=== PATIENT | male | born 1985 | race African-American/Black ===

== ENCOUNTER 2020-10-26 22:12 | Emergency (ER) | payer MEDICARE, SELFPAY ==
[2020-10-26 22:15] VITALS: BP 137/87; PULSE 68; RESP 18; TEMP 36.2; O2SAT 100
[2020-10-27 00:24] VITALS: BP 130/90; PULSE 68; RESP 16; O2SAT 100
[2020-10-27 00:46] VITALS: BP 117/73; PULSE 60; RESP 16; O2SAT 99
[2020-10-27 01:01] VITALS: BP 129/88; PULSE 67; RESP 13; O2SAT 100
[2020-10-27 01:16] VITALS: BP 116/69; PULSE 67; RESP 13; O2SAT 98
--- NOTE | 2020-10-27 01:23 | ED.GENADULT ---
HPI - General Adult General Chief complaint: Unspecified Stated complaint: ST Time Seen by Provider: 10/27/20 00:40 History of Present Illness HPI narrative: Patient is a 35-year-old male who presents ER with sore throat. Reports he was diagnosed with Covid on the first of the month. He has had some sore throat since then. It went away for couple days but then returned 3 days ago. Occasion feels like he needs to cough or clear his throat. Nonproductive. No rhinorrhea or sinus congestion. Concerned he may have strep throat. Denies chest pain or chest pressure. No difficulty swallowing. Related Data Allergies Allergy/AdvReac Type Severity Reaction Status Date / Time No Known Allergies Allergy Unverified 01/19/18 18:45 Review of Systems Constitutional: Constitutional: Denies chills and Denies fever(s) ENT: Denies nose pain, Denies post nasal drip, Denies sinus pressure and Reports sore throat Respiratory: Respiratory: Reports cough, Denies excessive phlegm production and Denies dyspnea PMFSH Past Medical History Medical History (Updated 10/27/20 @ 01:25 by Edvin Bautista MD) Healthy adult male Surgical History Surgical History (Updated 10/27/20 @ 01:24 by Edvin Bautista MD) History of orthopedic surgery Right tib-fib and Achilles injury from trauma. Exam Narrative: GENERAL: Well-appearing, well-nourished, and in no acute distress. HEAD: Normocephalic, atraumatic. ENT: Mucous membranes moist. Well-appearing oropharynx without tonsillar hypertrophy/exudate. Uvula midline nonedematous. No buccal or palatal lesions. CHEST: Clear to auscultation. No respiratory distress. HEART: Regular rate and rhythm. Normal peripheral pulses. NEURO: Alert and oriented x3. PSYCH: Normal mood and affect. Course Course Emergency Course: Strep negative. Discharge home. Vital Signs Vital signs: Vital Signs Temperature 97.2 F L 10/26/20 22:15 Pulse Rate 68 10/26/20 22:15 Respiratory Rate 18 10/26/20 22:15 Blood Pressure 137/87 10/26/20 22:15 Pulse Oximetry 100 10/26/20 22:15 Temperature 97.2 F L 10/26/20 22:15 Pulse Rate 68 10/27/20 00:24 Respiratory Rate 16 10/27/20 00:24 Blood Pressure 130/90 10/27/20 00:24 Pulse Oximetry 100 10/27/20 00:24 Medical Decision Making Vital Signs Vital Signs: Vital Signs Temperature 97.2 F L 10/26/20 22:15 Pulse Rate 68 10/26/20 22:15 Respiratory Rate 18 10/26/20 22:15 Blood Pressure 137/87 10/26/20 22:15 Pulse Oximetry 100 10/26/20 22:15 Temperature 97.2 F L 10/26/20 22:15 Pulse Rate 68 10/27/20 00:24 Respiratory Rate 16 10/27/20 00:24 Blood Pressure 130/90 10/27/20 00:24 Pulse Oximetry 100 10/27/20 00:24 Lab Data Labs: Strep Screen Presumptive Negative *(Reference Range: Negative)* Discharge Plan Discharge Clinical Impression: Sore throat Patient Disposition: Home, Self-Care Condition: Stable Additional Instructions: You have a sore throat, the reason for which is unclear. It may be related to some mild allergy symptoms with postnasal drip causing irritation. Continue take antihistamines at home. Return the ER if you cannot breathe, you cannot swallow, you develop fever over 100.4 ?F, you have additional concerns. Follow-up/Referrals: Soy Coronel MD [Primary Care Provider] -
[2020-10-27 01:31] VITALS: BP 112/75; PULSE 60; RESP 14; O2SAT 99
[2020-10-27 01:45] VITALS: BP 112/75; PULSE 68; RESP 12; O2SAT 100
== END 2020-10-27 01:49 | disposition home or self-care (01) ==
LOC: ANHED 10-27 01:27
PROVIDERS: Emergency Provider Emergency Medicine; PCP Emergency Medicine
DX: J06.9 Acute upper respiratory infection, unspecified (principal)
CPT/HCPCS: 87081; 87880; 99283

== ENCOUNTER 2023-01-03 17:51 | Emergency (ER) | payer MEDICARE, SELFPAY ==
--- NOTE | ~2023-01-03 | XR_ITS ---
EXAM: XR elbow LT min 3V DATE: 01/03/2023 18:12 HISTORY: sports injury; Lt elbow pain after lifting wts 1 mo ago . COMPARISON: None available. FINDINGS: Normal mineralization. No fracture or dislocation. No lytic or blastic lesion. Mild degene rative change at the elbow joint. No erosion or periosteal change. Soft tissues within normal limits. IMPRESSION: No acute osseous finding in the left elbow. Reviewed, dictated and finalized at location K.
[2023-01-03 18:15] VITALS: BP 140/76; PULSE 69; RESP 20; TEMP 36.6; O2SAT 100
--- NOTE | 2023-01-03 18:37 | ED.UPPEXIN ---
HPI - Extremity Injury (Upper) General Chief Complaint: Extremity Injury, Upper Stated Complaint: elbow injury Time Seen by Provider: 01/03/23 18:25 History of Present Illness HPI narrative: Patient hurt his left elbow while working out 2 months ago, he continue to work out through it but seemed to make it worse. He occasionally takes an Advil, overall the elbow pain has been improving but he is concerned that he may have injured it. Related Data Allergies Allergy/AdvReac Type Severity Reaction Status Date / Time No Known Allergies Allergy Verified 01/03/23 17:53 Review of Systems Review of Systems: M/S: Left elbow pain SKIN: No rash. NEURO: [No focal numbness or weakness] [facility] Past Medical History Medical History (Updated 01/03/23 @ 18:38 by Ada Garcia MD) Healthy adult male Surgical History Surgical History (Updated 10/27/20 @ 01:24 by Edvin Bautista MD) History of orthopedic surgery Right tib-fib and Achilles injury from trauma. Exam Narrative: EXAMINATION OF ORGAN SYSTEMS/BODY AREAS: Constitutional: Vital signs per nursing GENERAL:[No acute distress, non-toxic appearing.] HEAD: Normal with no signs of head trauma. EYES: EOMI, conjunctiva normal ENT: Hearing grossly intact LUNGS: Nonlabored breathing. HEART: [Regular rate and rhythm] ABD: [Soft], [nontender to palpation] EXT: Normal range of motion, no deformity; normal radial pulses SKIN: [No rashes or lesions.] NEURO: [Alert and oriented x 3. No gross focal sensory or strength deficits.] PSYCH: Normal affect Course Vital Signs Vital signs: Vital Signs Temperature 97.8 F 01/03/23 18:15 Pulse Rate 69 01/03/23 18:15 Respiratory Rate 20 01/03/23 18:15 Blood Pressure 140/76 01/03/23 18:15 Pulse Oximetry 100 01/03/23 18:15 Temperature 97.8 F 01/03/23 18:15 Pulse Rate 69 01/03/23 18:15 Respiratory Rate 20 01/03/23 18:15 Blood Pressure 140/76 01/03/23 18:15 Pulse Oximetry 100 01/03/23 18:15 MDM - Extremity Injury (Upper) MDM Narrative Medical decision making narrative: Patient presenting with left elbow pain after heavy working out, ongoing for 2 months, usually asymptomatic unless certain movements, on evaluation no obvious deformity, neurovascularly intact, no severe tenderness, full range of motion. X-ray is negative, given follow-up to ortho for possible MRI for further evaluation. D/w pt who is agreeable to plan. Discharge Plan Discharge Clinical Impression: Left elbow pain Patient Disposition: Home, Self-Care Condition: Stable Instructions: Antibiotic Form, Elbow Sprain (ED) Additional Instructions: Please follow up with ortho; you can always return for any further issues. Follow-up/Referrals: Aram Castellanos MD [Physician] - 2 Days Soy Coronel MD [Physician] -
== END 2023-01-03 18:59 | disposition home or self-care (01) ==
LOC: ANHED 18:48
PROVIDERS: Emergency Provider Emergency Medicine; PCP Nurse Practitioner Family
DX: S59.902A Unspecified injury of left elbow, initial encounter (principal); X50.9XXA Other and unspecified overexertion or strenuous movements or postures, initial encounter
CPT/HCPCS: 73080; 99283

== ENCOUNTER 2024-01-02 16:40 | Emergency (ER) | payer MEDICARE, SELFPAY ==
--- NOTE | ~2024-01-02 | XR_ITS ---
EXAMINATION: XR ribs LT 2V w CXR 2V DATE: 01/02/2024 18:33 INDICATION: Left rib pain and pleuritic chest pain TECHNIQUE: PA and lateral views of the chest and 3 views of the left ribs were obtained. COMPARISON: None FINDINGS: No rib fractures identified. No pneumothorax. No focal infiltrates, pleural effusion or pulmonary letty ma. Cardiomediastinal silhouette is normal. IMPRESSION: 1. No rib fracture or acute cardiopulmonary disease. Reviewed, dictated and finalized at location A.
[2024-01-02 17:09] VITALS: BP 140/88; PULSE 73; RESP 17; TEMP 36.5; O2SAT 99
--- NOTE | 2024-01-02 18:22 | ECG_ITS ---
Test Date: 2024-01-02 18:38:54 Measurements Intervals [place] Rate: 67 P: 58 MA: 204 QRS: 72 QRSD: 109 T: 62 QT: 377 QTc: 400 Interpretive Statements SINUS RHYTHM No previous ECG available for comparison Electronically Signed On 01-03-2024 09:38:42 CDT by Renny Hanks M.D.
[2024-01-02 18:50] LABS: Basophils Absolute Auto 0.1 K/mm3 (0.0-0.1); Basophils Percent Auto 0.8 % (0.2-1.2); Eosinophils Absolute Auto 0.2 K/mm3 (0-0.3); Eosinophils Percent Auto 2.9 % (0-4.4); Hematocrit 41.9 % (42.0-52.0); Hemoglobin 15.1 g/dL (14.0-18.0); Immature Granulocyte Absolute 0.03 K/mm3 (0.00-0.031); Immature Granulocyte Percent A 0.4 % (0-0.5); Lymphocytes Absolute Auto 2.14 K/mm3 (0.9-3.2); Lymphocytes Percent Auto 27.8 % (18.3-44.2); Mean Corpuscular Hemoglobin 31.9 pg (26-34); Mean Corpuscular Volume 88.6 fl (80-100); Mean Platelet Volume 10.7 fl (7.4-10.4); Monocytes Absolute Auto 0.7 K/mm3 (0.1-0.6); Monocytes Percent Auto 9.2 % (2.6-8.5); Neutrophils Absolute Auto 4.5 K/mm3 (1.3-6.7); Neutrophils Percent Auto 58.9 % (45.5-73.1); Platelet Count Result 236 k/mm3 (150-375); Red Blood Count 4.73 M/mm3 (4.6-6.20); Red Cell Distribution Width 12.3 % (11.5-14.5); White Blood Count 7.7 K/mm3 (4.5-10.0)
[2024-01-02 19:00] LABS: Alanine Aminotransferase 17 U/L (6-50); Albumin Level 4.4 g/dL (3.5-5.1); Alkaline Phosphatase 38 U/L (38-126); Anion Gap 7 mmol/L (4-12); Aspartate Amino Transferase 21 U/L (17-59); Bilirubin,Total 0.3 mg/dL (0.2-1.3); Blood Urea Nitrogen 21 mg/dL (9-20); Calcium 9.4 mg/dL (8.4-10.2); Carbon Dioxide 27 mmol/L (22-30); Chloride 104 mmol/L (98-107); Estimated CRCL calculation 101 ml/min; Estimated Glomerular Filt Rate > 60; Glucose 83 mg/dL (65-110); Lipase 107 U/L (23-300); Potassium 3.9 mmol/L (3.4-5.0); Sodium 138 mmol/L (137-145)
[2024-01-02 19:01] LABS: Prothrombin Time 13.5 Seconds (11.1-14.7)
[2024-01-02 19:02] LABS: Partial Thromboplastin Time 26.5 Seconds (22.3-36.8)
[2024-01-02 19:13] LABS: Troponin I < 0.012 ng/mL (0.000-0.034)
[2024-01-02 19:29] VITALS: BP 138/86; PULSE 79; RESP 16; TEMP 36.6; O2SAT 99
[2024-01-02] MEDS: KETOROLAC 30 MG/ML VIAL (*BKC) IM (19:50)
[2024-01-02] MEDS: LIDOCAINE 5% PATCH 1 PATCH TRANSDERM (19:51)
--- NOTE | 2024-01-02 19:57 | ED_ITS ---
HPI - Back Pain/Injury General Chief Complaint: Back Pain/Injury Stated Complaint: back pain Time Seen by Provider: 01/02/24 18:09 History of Present Illness HPI Narrative: 38-year-old male presents emergency department for left-sided rib pain for approximately 1 week. Patient states he has chronic right neck and shoulder pain which she has been seeing a chiropractor for. States he then began developing left rib pain and told his chiropractor and has been having several adjustments to his left ribs over the past week. States the chiropractor will push on his ribs and told they feel a pop. He went to chiropractor again today and states the pain was getting worse and they again attempted to adjust his ribs. He states the pain was significantly worse he came to the ED for further evaluation. He states the pain is worse when he takes a deep breath and when he moves. He denies cough or congestion, fever. 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 Social History Social History Smoking status: Never smoker Substance use type: does not use Living arrangements: with family Gender identity (if verbalized by the patient): Male Exam Narrative: GENERAL: Well-appearing, well-nourished, and in no acute distress. HEAD: Normocephalic, atraumatic. EYES:EOMI. ENT: Nares clear, no rhinorrhea or epistaxis. Mucous membranes moist. NECK: Supple. CHEST: Clear to auscultation. No respiratory distress. Tenderness to the left posterior lateral chest wall with no overlying ecchymosis or skin changes, no crepitus, step-offs or deformities HEART: Regular rate and rhythm. No murmur heard. Normal peripheral pulses. ABDOMEN: Soft, nontender, nondistended, normal active bowel sounds. No CVA tenderness EXTREMITIES: Normal range of motion. No edema. SKIN: Warm, dry, no rash. NEURO: No focal deficits. Alert and oriented x3 Course Vital Signs Vital signs: Vital Signs Temperature 97.7 F 01/02/24 17:09 Pulse Rate 73 01/02/24 17:09 Respiratory Rate 17 01/02/24 17:09 Blood Pressure 140/88 01/02/24 17:09 Pulse Oximetry 99 01/02/24 17:09 Oxygen Delivery Room Air 01/02/24 17:09 Temperature 97.9 F 01/02/24 19:29 Pulse Rate 79 01/02/24 19:29 Respiratory Rate 16 01/02/24 19:29 Blood Pressure 138/86 01/02/24 19:29 Pulse Oximetry 99 01/02/24 19:29 Oxygen Delivery Room Air 01/02/24 17:09 MDM - Back Pain/Injury MDM Narrative Medical decision making narrative: 38-year-old male presents emergency department for left posterior lateral rib pain for approximately 1 week, worsening after adjustments to the chiropractor. Vitals are stable. Patient is well-appearing and nontoxic, resting comfortably in the exam chair. On evaluation he has minimal tenderness to the left posterior lateral chest wall. Admits pain is worse with inspiration and m ovement. Lung sounds are clear. Left rib x-ray and PA/lateral chest x-ray are unremarkable. EKG shows sinus rhythm with rate of 67, normal ID interval, normal QRS duration, normal QTC, no ischemic changes. Troponin is undetectable. Lipase normal. Workup discussed with the patient. Discussed symptom allergies consistent with MSK etiology versus pleurisy, more likely MSK. He was given IM Toradol and lidocaine patch in the ED, these were sent to the pharmacy along with Flexeril. Advised him to follow closely with his PCP and to discontinue going to the chiropractor. He was also sent home with an incentive spirometer. Strict ED return precautions discussed. He is agreeable with the plan verbalized understanding. Discharged in stable condition. Lab Data 01/02/24 18:42 01/02/24 18:42 Labs: Lab Results 01/02/24 Range/Units 18:42 WBC 7.7 (4.5-10.0) K/mm3 RBC 4.73 (4.6-6.20) M/mm3 Hgb 15.1 (14.0-18.0) g/dL Hct 41.9 L (42.0-52.0) % MCV 88.6 (80-100) fl MCH 31.9 (26-34) pg MCHC 36.0 (32-36) g/dl RDW 12.3 (11.5-14.5) % Plt Count 236 (150-375) k/mm3 MPV 10.7 H (7.4-10.4) fl Immature Gran % (Auto) 0.4 (0-0.5) % Neut % (Auto) 58.9 (45.5-73.1) % Lymph % (Auto) 27.8 (18.3-44.2) % Wilkin % (Auto) 9.2 H (2.6-8.5) % Eos % (Auto) 2.9 (0-4.4) % Baso % (Auto) 0.8 (0.2-1.2) % Lymph # (Auto) 2.14 (0.9-3.2) K/mm3 Wilkin # (Auto) 0.7 H (0.1-0.6) K/mm3 Eos # (Auto) 0.2 (0-0.3) K/mm3 Baso # (Auto) 0.1 (0.0-0.1) K/mm3 Abs Immat Gran (auto) 0.03 (0.00-0.031) K/mm3 Absolute Neuts (auto) 4.5 (1.3-6.7) K/mm3 Absolute Nucleated RBC 0.000 (0.0-0.012) K/mm3 Nucleated RBC % 0.0 (0.0-0.2) % PT 13.5 (11.1-14.7) Seconds INR 1.0 APTT 26.5 (22.3-36.8) Seconds Sodium 138 (137-145) mmol/L Potassium 3.9 (3.4-5.0) mmol/L Chloride 104 (98-107) mmol/L Carbon Dioxide 27 (22-30) mmol/L Anion Gap 7 (4-12) mmol/L BUN 21 H (9-20) mg/dL Creatinine 1.00 (0.7-1.3) mg/dL Estim Creat Clear Calc 101 ml/min Estimated GFR > 60 (59 - ) Glucose 83 (65-110) mg/dL Calcium 9.4 (8.4-10.2) mg/dL Total Bilirubin 0.3 (0.2-1.3) mg/dL AST 21 (17-59) U/L ALT 17 (6-50) U/L Alkaline Phosphatase 38 (38-126) U/L Troponin I < 0.012 (0.000-0.034) ng/mL Total Protein 8.0 (6.3-8.2) g/dL Albumin 4.4 (3.5-5.1) g/dL Lipase 107 (23-300) U/L Discharge Plan Discharge Clinical Impression: Rib pain on left side Patient Disposition: Home, Self-Care Condition: Stable Instructions: Antibiotic Form, Rib Contusion (ED) Additional Instructions: Your evaluated in the emergency department for left rib pain. Your x-ray showed no broken ribs, no pneumonia or other findings. He the remainder of your workup looks normal. Your exam is consistent with a musculoskeletal cause of your pain as discussed. I sent ibuprofen, muscle relaxers and lidocaine patches to the pharmacy, please take these as directed. Please use the incentive spirometer several times a day to help prevent pneumonia. Follow-up closely with her primary care provider. Return to the emergency department if you develop cough, fever, shortness of breath, worsening pain or other concerning symptoms. Prescriptions: New ibuprofen 600 mg tablet 600 mg PO Q6H PRN (Reason: pain) Qty: 14 0RF cyclobenzaprine 10 mg tablet 10 mg PO TID PRN (Reason: muscle spasm) Qty: 14 0RF lidocaine 5 % adhesive patch,medicated 1 patch topical DAILY Qty: 15 0RF Rx Instructions: leave on most painful area for up to 12 hrs. do not use more than 1 patch in a 24-hour period. Follow-up/Referrals: Soy Coronel MD [Primary Care Provider] -
== END 2024-01-02 20:22 | disposition home or self-care (01) ==
PROVIDERS: Emergency Provider Physician Assistant; PCP Emergency Medicine
DX: R07.81 Pleurodynia (principal)
CPT/HCPCS: 36415; 71046; 71100; 80053; 83690; 84484; 85025; 85610; 85730; 93005; 96372; 99284; A9270; J1885

== ENCOUNTER 2024-01-13 02:20 | Observation (INO) | payer MEDICARE, SELFPAY ==
[2024-01-13] VITALS (62 sets, daily range): BP systolic 104–139; BP diastolic 70–99; PULSE 55–86; RESP 10–23; TEMP 36.4–37.1; O2SAT 93–100; BMI 25.4
--- NOTE | ~2024-01-13 | CT_ITS ---
EXAMINATION: CTA chest PE protocol, CTA abdomen pelvis DATE: 01/13/2024 13:51 INDICATION: Chest pain. TECHNIQUE: 1. Computed tomography (CT) pulmonary angiogram of the chest was performed with 100 mL Omnipaque-350 intravenous contrast. Additional 3D reconstructions utilizing coronal maximum intensity projection (M IP) were performed. Automated exposure control and iterative reconstruction technique were employed. 2. CT angiogram of the abdomen and pelvis was performed utilizing the same 100 mL Omnipaque-350 intra venous contrast bolus. Additional 3D reconstructions utilizing coronal maximum intensity projection ( MIP) were performed. Automated exposure control and iterative reconstruction technique were employed. The combined dose-length product for both of these studies was 824.90 mGy-cm. COMPARISON: None FINDINGS: Chest: No pulmonary embolism. Mild discoid atelectasis at the basilar bilateral lower lobes. No pneumonia, p ulmonary edema, pleural effusion or pneumothorax. Heart size is normal. No pericardial effusion. Thor acic aorta is normal in caliber with no dissection. No pathologically enlarged thoracic lymphadenopat hy. Mild thoracic spondylosis. Abdomen and pelvis: Likely vicarious excreted contrast layering in the nondependent gallbladder over lower attenuation li raulito dependent sludge. Liver, spleen, pancreas, bilateral adrenal glands and kidneys are normal. Ther e is significant amount of excreted contrast the bilateral renal collecting systems, ureters and blad vandana suggesting an earlier contrast enhanced study, most likely related angiography with sheath extend ing into the right common femoral artery and stranding including some extravasated high attenuation c ontrast in the soft tissues both distal to the inguinal ligament as well as some extraperitoneal cont rast proximal to the inguinal ligament in the anterior right hemipelvis. The density suggests this is acute active extravasation. No bowel obstruction. Abdominal aorta is normal in caliber with no disse ction. Bones are unremarkable. IMPRESSION: 1. No pulmonary embolism or other acute cardiopulmonary disease. 2. Small amount of likely active contrast extravasation at the right groin with sheath within the rig ht common femoral vein and small hematoma along the right common and superficial femoral artery and s mall amount of contrast the soft tissues at both proximal and distal to the level of the inguinal lig ament. Reviewed, dictated and finalized at location A. PRESS OPERATOR HELPER IMPRESSION: 1. No pulmonary embolism or other acute cardiopulmonary disease. 2. Small amount of likely active contrast extravasation at the right groin with sheath within the right common femoral vein and small hematoma along the right common and superficial femoral artery and small amount of contrast the soft ti ssues at both proximal and distal to the level of the inguinal ligament.
--- NOTE | ~2024-01-13 | XR_ITS ---
EXAMINATION: XR chest 1V portable DATE: 01/13/2024 02:53 INDICATION: Chest pain TECHNIQUE: frontal view of the chest was obtained. COMPARISON: Chest radiograph dated 02/02/2024 FINDINGS: Mild reticular opacities in the left lower lung zone. Remainder of the lungs are clear. Increased diana ency and architectural distortion at the upper lungs The cardiomediastinal silhouette is normal. Visu alized bones and soft tissues are unremarkable. IMPRESSION: 1. Mild reticular opacities in the left lower lung zone which could represent bronchitis/pneumonia, a telectasis or mild pulmonary edema. Reviewed, dictated and finalized at location A. ESS MENDER IMPRESSION: 1. Mild reticular opacities in the left lower lung zone which could represent b ronchitis/pneumonia, atelectasis or mild pulmonary edema.
--- NOTE | 2024-01-13 02:24 | ECG_ITS ---
Test Date: 2024-01-13 02:31:55 Measurements Intervals [place] Rate: 58 P: 67 NM: 195 QRS: 71 QRSD: 102 T: 66 QT: 403 QTc: 398 Interpretive Statements SINUS BRADYCARDIA BORDERLINE ECG Compared to ECG 01/02/2024 18:38:54 HEART RATE HAS DECREASED Electronically Signed On 01-13-2024 06:13:50 TRANSPORTATION PROJECT MANAGER by Mat Araujo D.O.
[2024-01-13 02:35] LABS: Basophils Absolute Auto 0.1 K/mm3 (0.0-0.1); Eosinophils Absolute Auto 0.3 K/mm3 (0-0.3); Eosinophils Percent Auto 4.2 % (0-4.4); Hematocrit 42.7 % (42.0-52.0); Hemoglobin 15.3 g/dL (14.0-18.0); Immature Granulocyte Absolute 0.03 K/mm3 (0.00-0.031); Immature Granulocyte Percent A 0.4 % (0-0.5); Lymphocytes Percent Auto 43.1 % (18.3-44.2); Mean Corpuscular HGB Conc 35.8 g/dl (32-36); Mean Corpuscular Hemoglobin 31.7 pg (26-34); Mean Corpuscular Volume 88.6 fl (80-100); Mean Platelet Volume 10.5 fl (7.4-10.4); Monocytes Absolute Auto 0.9 K/mm3 (0.1-0.6); Monocytes Percent Auto 10.8 % (2.6-8.5); Neutrophils Absolute Auto 3.2 K/mm3 (1.3-6.7); Neutrophils Percent Auto 40.5 % (45.5-73.1); Platelet Count Result 231 k/mm3 (150-375); Red Blood Count 4.82 M/mm3 (4.6-6.20); Red Cell Distribution Width 12.5 % (11.5-14.5); White Blood Count 7.9 K/mm3 (4.5-10.0)
[2024-01-13 02:45] LABS: Alanine Aminotransferase 26 U/L (6-50); Albumin Level 4.5 g/dL (3.5-5.1); Alkaline Phosphatase 40 U/L (38-126); Anion Gap 10 mmol/L (4-12); Aspartate Amino Transferase 35 U/L (17-59); Bilirubin,Total 0.4 mg/dL (0.2-1.3); Blood Urea Nitrogen 19 mg/dL (9-20); Calcium 9.2 mg/dL (8.4-10.2); Carbon Dioxide 30 mmol/L (22-30); Chloride 100 mmol/L (98-107); Estimated CRCL calculation 111 ml/min; Estimated Glomerular Filt Rate > 60; Glucose 99 mg/dL (65-110); Lipase 118 U/L (23-300); Potassium 3.5 mmol/L (3.4-5.0); Prothrombin Time 13.2 Seconds (11.1-14.7); Sodium 140 mmol/L (137-145)
[2024-01-13 02:46] LABS: Partial Thromboplastin Time 26.6 Seconds (22.3-36.8)
--- NOTE | 2024-01-13 03:01 | ED_ITS ---
HPI - General Adult General Chief complaint: Chest Pain Stated complaint: chest pain Time Seen by Provider: 01/13/24 02:29 History of Present Illness HPI narrative: Patient is a 38-year-old gentleman who presents emergency department with chief complaint of chest discomfort. Patient reports that he had a uncomfortable feeling it has been going on for the last 24 hours in his chest patient states this evening he ate some should be jaundiced and reports that pain discomfort got worse. The patient states he did take some Pepto out 45 minutes prior to arrival without the patient reports he has no prior history of cardiac disease Related Data Allergies Allergy/AdvReac Type Severity Reaction Status Date / Time No Known Allergies Allergy Verified 01/13/24 02:28 Review of Systems Review of Systems: A 10 system review of systems was completed on the patient and is negative except for what is stated in the HPI. Nursing and ancillary documentation was reviewed. 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 Social History Social History Smoking status: Never smoker Substance use type: does not use Living arrangements: with family Gender identity (if verbalized by the patient): Male Exam Narrative: GENERAL: Well-appearing, well-nourished, and in no acute distress. HEAD: Normocephalic, atraumatic. EYES: PERRLA and EOMI. ENT: Nares clear, no rhinorrhea or epistaxis. Mucous membranes moist. NECK: Supple. CHEST: Clear to auscultation. No respiratory distress. HEART: Regular rate and rhythm. No murmur heard. Normal peripheral pulses. ABDOMEN: Soft, nontender, nondistended, normal active bowel sounds. EXTREMITIES: Normal range of motion. No edema. SKIN: Warm, dry, no rash. NEURO: No focal deficits. Alert and oriented x3. PSYCH: Normal mood and affect. Course Vital Signs Vital signs: Vital Signs Temperature 36.4 C 01/13/24 02:24 Pulse Rate 86 01/13/24 02:24 Respiratory Rate 14 01/13/24 02:24 Blood Pressure 132/95 H 01/13/24 02:24 Pulse Oximetry 100 01/13/24 02:24 Oxygen Delivery Room Air 01/13/24 02:24 Temperature 36.4 C 01/13/24 02:24 Pulse Rate 69 01/13/24 02:28 Respiratory Rate 14 01/13/24 02:24 Blood Pressure 132/95 H 01/13/24 02:24 Pulse Oximetry 100 01/13/24 02:31 Oxygen Delivery Room Air 01/13/24 02:31 Medical Decision Making MDM Narrative Medical decision making narrative: Differential diagnosis includes ACS, NSTEMI, gastroesophageal reflux disease, gastritis, pancreatitis EKG showed no acute ST elevations Laboratory studies showed a normal CBC CMP showed no acute abnormalities lipase was normal at 118 Initial troponin was 1.730 Patient given aspirin emergency department The patient will be started on heparin drip Case will be discussed with hospitalist for admission Vital Signs Vital Signs: Vital Signs Temperature 36.4 C 01/13/24 02:24 Pulse Rate 86 01/13/24 02:24 Respiratory Rate 14 01/13/24 02:24 Blood Pressure 132/95 H 01/13/24 02:24 Pulse Oximetry 100 01/13/24 02:24 Oxygen Delivery Room Air 01/13/24 02:24 Temperature 36.4 C 01/13/24 02:24 Pulse Rate 69 01/13/24 02:28 Respiratory Rate 14 01/13/24 02:24 Blood Pressure 132/95 H 01/13/24 02:24 Pulse Oximetry 100 01/13/24 02:31 Oxygen Delivery Room Air 01/13/24 02:31 Lab Data 01/13/24 02:29 01/13/24 02:29 Labs: Lab Results 01/13/24 Range/Units 02:29 WBC 7.9 (4.5-10.0) K/mm3 RBC 4.82 (4.6-6.20) M/mm3 Hgb 15.3 (14.0-18.0) g/dL Hct 42.7 (42.0-52.0) % MCV 88.6 (80-100) fl MCH 31.7 (26-34) pg MCHC 35.8 (32-36) g/dl RDW 12.5 (11.5-14.5) % Plt Count 231 (150-375) k/mm3 MPV 10.5 H (7.4-10.4) fl Immature Gran % (Auto) 0.4 (0-0.5) % Neut % (Auto) 40.5 L (45.5-73.1) % Lymph % (Auto) 43.1 (18.3-44.2) % [place] % (Auto) 10.8 H (2.6-8.5) % Eos % (Auto) 4.2 (0-4.4) % Baso % (Auto) 1.0 (0.2-1.2) % Lymph # (Auto) 3.40 H (0.9-3.2) K/mm3 [place] # (Auto) 0.9 H (0.1-0.6) K/mm3 Eos # (Auto) 0.3 (0-0.3) K/mm3 Baso # (Auto) 0.1 (0.0-0.1) K/mm3 Abs Immat Gran (auto) 0.03 (0.00-0.031) K/mm3 Absolute Neuts (auto) 3.2 (1.3-6.7) K/mm3 Absolute Nucleated RBC 0.000 (0.0-0.012) K/mm3 Nucleated RBC % 0.0 (0.0-0.2) % PT 13.2 (11.1-14.7) Seconds INR 1.0 APTT 26.6 (22.3-36.8) Seconds Sodium 140 (137-145) mmol/L Potassium 3.5 (3.4-5.0) mmol/L Chloride 100 (98-107) mmol/L Carbon Dioxide 30 (22-30) mmol/L Anion Gap 10 (4-12) mmol/L BUN 19 (9-20) mg/dL Creatinine 0.90 (0.7-1.3) mg/dL Estim Creat Clear Calc 111 ml/min Estimated GFR > 60 (59 - ) Glucose 99 (65-110) mg/dL Calcium 9.2 (8.4-10.2) mg/dL Total Bilirubin 0.4 (0.2-1.3) mg/dL AST 35 (17-59) U/L ALT 26 (6-50) U/L Alkaline Phosphatase 40 (38-126) U/L Troponin I 1.730 H* (0.000-0.034) ng/mL Total Protein 8.0 (6.3-8.2) g/dL Albumin 4.5 (3.5-5.1) g/dL Lipase 118 (23-300) U/L Critical Care Time Critical Care Time Critical Care Time: Yes Total Critical Care Time: 30 Discharge Plan Discharge Clinical Impression: Non-ST elevation [place] (NSTEMI) Patient Disposition: Still a Patient Condition: Stable Prescriptions: No Action ibuprofen 600 mg tablet 600 mg PO Q6H PRN (Reason: pain) Qty: 14 0RF cyclobenzaprine 10 mg tablet 10 mg PO TID PRN (Reason: muscle spasm) Qty: 14 0RF lidocaine 5 % adhesive patch,medicated 1 patch topical DAILY Qty: 15 0RF Rx Instructions: leave on most painful area for up to 12 hrs. do not use more than 1 patch in a 24-hour period. Follow-up/Referrals: Soy Coronel MD [Primary Care Provider] - Time of Disposition: 03:03
[2024-01-13] MEDS: ONDANSETRON INJ 4 MG/2 ML VIAL IV PUSH (03:12)
[2024-01-13] MEDS: ASPIRIN 81 MG CHEWABLE TABLET 324 MG PO (03:14)
[2024-01-13] MEDS: NITROGLYCERIN SL 0.4 MG TABLET SUBLINGUAL (03:14)
[2024-01-13] MEDS: PANTOPRAZOLE SODIUM IV 40 MG VIAL IV PUSH (03:15)
[2024-01-13] MEDS: MORPHINE SULFATE (*CRX) 4 MG/ML INJ IV PUSH (03:15)
--- NOTE | 2024-01-13 03:20 | P.HP_ITS ---
H&P: HPI History of Present Illness Date/Time: 01/13/24 06:00 Chief Complaint: Chest pain. Narrative: This is a 38-year-old male without significant medical history who presented to the emergency department via private vehicle for evaluation of chest pain. The patient provides the following history. On Sunday he ?just felt weird all day.? When asked for further clarification he reports that he was feeling anxious for no reason. Yesterday he was feeling back to normal so couple of hours after he returned home from eating dinner last evening he once again started to feel similar symptoms he was experiencing the day before. He retired to bed at 23:00 and not long thereafter he developed aching pain in the mid chest which he describes as pressure or heaviness. It seemed to radiate into the arms, more so into the forearms and wrist. Associated symptoms include nausea and 1 episode of nonbilious and non bloody emesis. He took Pepto-Bismol which did not help. The pain intensified to 8-9/10 any came in for evaluation. He has never had similar symptoms. Up until the last couple of months he was working out at the gym frequently but stopped going when he developed the musculoskeletal issues mentioned above. He has not had any exertional chest pain and denies pleuritic pain, palpitations, shortness of breath, lower extremity edema, and calf pain. He also denies syncope and near-syncope. 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 He endorses having quite a bit of stress recently as he is saving up for a down payment on home. At this time he has minimal if any discomfort. No personal or family history of coronary artery disease. Of note, a couple of months ago he began experiencing aching in his mid upper back and at times into the neck and shoulder and he saw 2 different chiropractors without much benefit. His symptoms actually improved after he stopped going. In the ED: Vital signs were stable on arrival. CMP and CBC were pretty unremarkable. Initial troponin was 1.730. EKG showed sinus bradycardia. He was given aspirin 324 mg and was started on heparin drip and is being admitted to the IMU in this setting for close monitoring and Cardiology consultation. Review of Systems Review of Systems: 12 systems were reviewed and are negativ e except for as per HPI. [facility] Past Medical History Medical History (Updated 01/13/24 @ 06:18 by Angelica Castillo PA-C) Healthy adult male Surgical History Surgical History History of orthopedic surgery Right tib-fib and Achilles injury from trauma. Family History Family History (Updated 01/13/24 @ 06:18 by Angelica Castillo PA-C) Mother Cerebrovascular accident Hypertension Sibling Hypertension Social History Social History (Updated 01/13/24 @ 06:19 by Angelica Castillo PA-C) Social History: Surrogate medical decision maker: Cheryl Guzman, mother. Code status: Full code. Smoking status: Never smoker Substance use type: does not use Additional living arrangements comments: Lives in [place]. Additional occupation/education comments: Works from home in the [employer] industry. Meds Home Medications and Allergies Home Medications Medication Instructions Recorded Confirmed Type cyclobenzaprine 10 mg tablet 10 mg PO TID PRN muscle spasm #14 01/02/24 Rx tabs ibuprofen 600 mg tablet 600 mg PO Q6H PRN pain #14 tabs 01/02/24 Rx lidocaine 5 % topical patch 1 patch topical DAILY #15 ea 01/02/24 Rx Allergies Allergy/AdvReac Type Severity Reaction Status Date / Time No Known Allergies Allergy Verified 01/13/24 02:28 Vital Signs Vital Signs - 24 hr 01/13/24 02:24 01/13/24 02:28 01/13/24 02:31 Temperature 97.6 F Pulse Rate 86 69 Respiratory Rate 14 Blood Pressure 132/95 H Pulse Oximetry 100 100 Oxygen Delivery Room Air Room Air Exam Narrative: General: Well-developed, nontoxic-appearing male sitting up in bed in no acute distress. Weight: 86.2 kg. BMI: 24.4. HEENT: Normocephalic, atraumatic. PERRL, EOMI. Sclera anicteric. Oral mucosa moist. Oropharynx clear. Neck: Supple. No carotid bruits or JVD. Respiratory: Lungs are clear to auscultation bilaterally. Cardiovascular: Regular rate and rhythm with S1-S2. Chest: No tenderness to palpation over the chest wall. Gastrointestinal: Abdomen is soft, nontender, and nondistended with positive bowel sounds. Skin: Warm and dry. No rash or lesions on limited exam. Extremities: No cyanosis, clubbing, or edema. Radial and pedal pulses intact. No palpable knots or cords. Negative Elio sign bilaterally. Neurological: Alert. Cranial nerves 2-12 are grossly intact. No gross focal deficits to casual conversation. Psychiatric: Pleasant and cooperative with normal mood and affect. Judgment and insight intact. H&P: Results Labs Labs: Short CBC 01/13/24 Range/Units 02:29 WBC 7.9 (4.5-10.0) K/mm3 Hgb 15.3 (14.0-18.0) g/dL Hct 42.7 (42.0-52.0) % Plt Count 231 (150-375) k/mm3 BMP 01/13/24 02:29 Sodium 140 Potassium 3.5 Chloride 100 Carbon Dioxide 30 BUN 19 Creatinine 0.90 Glucose 99 Calcium 9.2 Cardiac Enzymes 01/13/24 Range/Units 02:29 Troponin I 1.730 H* (0.000-0.034) ng/mL Liver Function 01/13/24 Range/Units 02:29 Total Bilirubin 0.4 (0.2-1.3) mg/dL AST 35 (17-59) U/L ALT 26 (6-50) U/L Alkaline Phosphatase 40 (38-126) U/L Albumin 4.5 (3.5-5.1) g/dL Assessment and Plan Assessment and plan (1) Non-ST elevation myocardial infarction (NSTEMI): Code(s): I21.4 - Non-ST elevation (NSTEMI) myocardial infarction Status: Acute Plan The patient presented to the emergency department for evaluation of mid chest pain as detailed in HPI. Labs, imaging, EKG, and all reports were personally reviewed. Initial troponin was 1.730 and is trending upwards. He received aspirin 324 mg and is currently on heparin drip. At this time he is without significant chest discomfort. He will be NPO for possible cardiac catheterization later today. Vital signs were reviewed and they are stable. Check fasting lipids. Findings and treatment plan were discussed with the patient. Questions were solicited and answered to satisfaction. The patient's medical management will be taken over by the hospitalist team in a.m. Quality VTE Prophylaxis VTE prophylaxis: pharmacologic ordered (currently on a heparin drip) The patient has been admitted under observation status. Hospitalist [facility] Advance Care Plan I have confirmed that the patient's Advanced Care Plan is present, code status is documented, or surrogate decision maker is listed in patient medical record.: Yes Medication Reconciliation I have utilized all available resources to obtain, update and review the patients current medications (includes all prescriptions, OTC, herbals, cannabis, and nutritional supplements).: Yes
[2024-01-13] MEDS: HEPARIN SODIUM 5,000 UNITS/ML VIAL 4000 UNITS IV PUSH (03:58)
[2024-01-13] MEDS: HEPARIN SOD/D5W 100 UNITS/ML 25,000 UNITS/250 ML BAG 10 UNITS IV CONT (03:58)
--- NOTE | 2024-01-13 05:20 | ECG_ITS ---
Test Date: 2024-01-13 05:26:58 Measurements Intervals [place] Rate: 69 P: 54 NV: 206 QRS: 47 QRSD: 97 T: 61 QT: 388 QTc: 418 Interpretive Statements SINUS RHYTHM NORMAL ECG Compared to ECG 01/13/2024 02:31:55 HEART RATE HAS INCREASED Electronically Signed On 01-13-2024 06:16:27 [employer] INSPECTOR by Mat Araujo D.O.
--- NOTE | 2024-01-13 05:35 | PC.NURSE ---
Patient moved from H2 to private room 13 for comfort and privacy while being boarded in the ED awaiting room placement upstairs. Patient updated, denies any pain at this time. Patient has no complaints at this time. 3hr EKG and troponin performed. TAYA Castillo in room now assessing patient.
--- NOTE | 2024-01-13 06:02 | PC.NURSE ---
Flora BAIN, hospitalist notified of patients critical 3hr trop. She request ERP to notify cardiology.
--- NOTE | 2024-01-13 08:23 | P.CONCA_ITS ---
Assessment and Plan Assessment and plan (1) Non-ST elevation myocardial infarction (NSTEMI): Code(s): I21.4 - Non-ST elevation (NSTEMI) myocardial infarction Status: Acute Assessment and Plan: In regards to NSTEMI, low risk factors for CAD. -EKG looked unremarkable but troponins keeps rising. Currently having pain about1.5 feels some pressure. -because troponins keeps rising, risks and benefits of cardiac catheterization discussed with patient agrees to proceed. Will take him to the laboratory associate shortly. -continue on a IV heparin drip for now. Continue aspirin History of Present Illness History of Present Illness Consult date/time: Date of service 01/13/24 08:23 Requesting physician: Jatin Francis MD Consult reason: chest pain Reason For Visit: NSTEMI Narrative: This is 38-year-old patient with no significant past medical history who presents here to the hospital via private vehicle for evaluation for chest pain. No new medical problems and does not any prescribed medications at home. Stated that for the last several months he has some issues with the upper back, bilateral shoulders discomfort and stopped working out and started seeing chiropractor. About a couple weeks ago you took our fracture did he start to have left lower rib cage pain that is worse when he takes a deep breath. He came to the emergency room and he was told to take some NSAIDs. His upper back issues were related to torso movement and moving shoulders. Then on Sunday night he started to feel anxious Sunday he did well and went to dinner and then after that he came back home I said fee anxious again sent to do a chest pressure. Chest pressure started to increase in severity and was central in location and then at 2:00 a.m. it became intense and decided to come to the emergency room. Denies palpitations, shortness of breath, dizziness, syncope. Does not smoke or drink and denies family history of CAD. Normal creatinine, troponins negative then 1.7 then 3.9, then 4.7, normal lipase. EKG reviewed and analyzed myself. Shows sinus bradycardia with no changes. Chest x-ray revealed an asthma self looks unremarkable. Review of Systems 2 Constitutional: Constitutional: Denies chills, Denies fever(s) and Denies poor appetite Eyes: Eyes: Denies eye discharge, Denies loss of vision and Denies eye pain ENT: Denies dizziness, Denies epistaxis, Denies nasal congestion and Denies sore throat Cardiovascular: Cardiovascular: Reports chest pain, Denies syncope, Denies pedal edema, Denies leg edema, Denies palpitations, Denies dyspnea, Denies dyspnea on exertion and Denies orthopnea Respiratory: Respiratory: Denies cough, Denies dyspnea, Denies dyspnea on exertion and Denies wheezing Gastrointestinal: Gastrointestinal: Denies abdominal pain, Denies diarrhea, Denies nausea and Denies vomiting Genitourinary: Genitourinary: Denies hematuria, Denies genital lesions and Denies dysuria Musculoskeletal: Musculoskeletal: Denies arthralgias, Denies joint swelling and Denies numbness Integumentary/Breasts: Skin/Breast: Denies pruritus and Denies rash Neurologic: Denies dizziness, Denies syncope, Denies loss of vision and Denies numbness Psychiatric: Psychiatric: Denies anxiety and Denies depression Endocrine: Endocrine: Denies cold intolerance, Denies heat intolerance and Denies palpitations Hematologic/Lymphatic: Hematologic/Lymphatic: Denies easy bleeding and Denies easy bruising Allergic/Immunologic: Allergic/Immunologic: Denies urticaria and Denies wheezing PMFSH Past Medical History Medical History Healthy adult male Surgical History Surgical History History of orthopedic surgery Right tib-fib and Achilles injury from trauma. Family History Family History Mother Cerebrovascular accident Hypertension Sibling Hypertension Social History Social History Social History: Surrogate medical decision maker: Cheryl Guzman, mother. Code status: Full code. Smoking status: Never smoker Substance use type: does not use Additional living arrangements comments: Lives in [place]. Additional occupation/education comments: Works from home in the [employer] industry. Meds Home Medications and Allergies Home Medications Medication Instructions Recorded Confirmed Type cyclobenzaprine 10 mg tablet 10 mg PO TID PRN muscle spasm #14 01/02/24 Rx tabs ibuprofen 600 mg tablet 600 mg PO Q6H PRN pain #14 tabs 01/02/24 Rx lidocaine 5 % topical patch 1 patch topical DAILY #15 ea 01/02/24 Rx Allergies Allergy/AdvReac Type Severity Reaction Status Date / Time No Known Allergies Allergy Verified 01/13/24 02:28 Vital Signs Vital Signs - 24 hr 01/13/24 02:24 01/13/24 02:28 01/13/24 02:31 Temperature 36.4 C Pulse Rate 86 69 Respiratory Rate 14 Blood Pressure 132/95 H Pulse Oximetry 100 100 Oxygen Delivery Room Air Room Air 01/13/24 03:37 01/13/24 03:45 01/13/24 04:00 Temperature Pulse Rate 73 61 57 L Respiratory Rate 15 17 Blood Pressure Pulse Oximetry 97 98 93 Oxygen Delivery 01/13/24 04:01 01/13/24 04:15 01/13/24 04:30 Temperature Pulse Rate 65 62 70 Respiratory Rate 10 L 12 12 Blood Pressure 120/84 Pulse Oximetry 94 94 93 Oxygen Delivery 01/13/24 04:45 01/13/24 05:00 01/13/24 05:15 Temperature Pulse Rate 60 60 63 Respiratory Rate 12 12 11 L Blood Pressure Pulse Oximetry 95 94 94 Oxygen Delivery 01/13/24 05:31 01/13/24 05:33 01/13/24 05:45 Temperature Pulse Rate 83 74 Respiratory Rate 10 L 14 Blood Pressure 121/74 Pulse Oximetry 96 96 97 Oxygen Delivery 01/13/24 05:46 01/13/24 06:00 01/13/24 06:15 Temperature Pulse Rate 80 76 70 Respiratory Rate 17 12 12 Blood Pressure 111/81 Pulse Oximetry 96 96 97 Oxygen Delivery 01/13/24 06:30 01/13/24 06:31 01/13/24 06:45 Temperature Pulse Rate 71 74 68 Respiratory Rate 10 L 13 11 L Blood Pressure 114/72 Pulse Oximetry 97 96 96 Oxygen Delivery 01/13/24 07:00 Temperature Pulse Rate 73 Respiratory Rate 11 L Blood Pressure Pulse Oximetry 97 Oxygen Delivery Exam Const: General: cooperative, comfortable, no acute distress, alert, awake and well nourished Nutritional Appearance: well nourished Orientation/consciousness: patient oriented x3 HENMT: Head: normal to inspection, normocephalic and atraumatic Ears: hearing grossly normal bilaterally Face/Nose/Sinus: Normal external nose present, Normal nares present, no nasal discharge noted, normal facial exam and No erythema Face and sinus: normal facial exam and no erythema Mouth: No drooling and No restricted motion Throat: uvula midline Eyes: General: appearance normal, both eyes and all related structures Alignment and Position: position normal Conjunctivae: conjunctivae normal Sclera: sclerae normal Direct Ophthalmoscopy: No photophobia Neck: Neck: normal visual inspection and no JVD Thyroid: thyroid normal Carotids: no bruits Lymphatic: lymphedema not noted Chest: Chest palpation & inspection: normal inspection of the chest and no tenderness Resp: Effort & Inspection: normal respiratory effort and no nasal flaring Auscultation: clear to auscultation bilaterally, no crackles, no rales and no wheezes Cardio: Jugular venous distension: no JVD Rate: regular rate Rhythm: regular rhythm Heart sounds: S1 normal heart sound present, S2 normal heart sound present, no gallops, no murmurs and no rubs GI: Inspection: non-distended GI Palp: No abdominal tenderness and No Soft to palpation Auscultation: normal bowel sounds Rectal Exam: deferred : General: No no CVA tenderness Back/Spine/Pelvis: Back: No no CVA tenderness Cervical Spine: cervical ROM normal Skin: General skin exam: normal color and rashes and/or lesions noted Neuro: General: patient oriented x3 Cranial nerves: No CN's II-XII intact bilaterally Speech: normal speech Motor exam (neuro): no tremors Extrem: General: normal to inspection and pedal edema present Psych: Appearance: grossly normal and well kempt Speech and movement: Nor mal speech and movement present Affect: normal affect Results Labs and Meds 01/13/24 02:29 01/13/24 02:29 Lab results: Cardiac Enzymes 01/13/24 01/13/24 Range/Units 02:29 05:25 AST 35 (17-59) U/L Troponin I 1.730 H* 3.970 H* D (0.000-0.034) ng/mL Coagulation 01/13/24 Range/Units 02:29 PT 13.2 (11.1-14.7) Seconds APTT 26.6 (22.3-36.8) Seconds CBC 01/13/24 Range/Units 02:29 WBC 7.9 (4.5-10.0) K/mm3 RBC 4.82 (4.6-6.20) M/mm3 Hgb 15.3 (14.0-18.0) g/dL Hct 42.7 (42.0-52.0) % Plt Count 231 (150-375) k/mm3 Lymph # (Auto) 3.40 H (0.9-3.2) K/mm3 [place] # (Auto) 0.9 H (0.1-0.6) K/mm3 Eos # (Auto) 0.3 (0-0.3) K/mm3 Baso # (Auto) 0.1 (0.0-0.1) K/mm3 Comprehensive Metabolic Panel 01/13/24 Range/Units 02:29 Sodium 140 (137-145) mmol/L Potassium 3.5 (3.4-5.0) mmol/L Chloride 100 (98-107) mmol/L Carbon Dioxide 30 (22-30) mmol/L BUN 19 (9-20) mg/dL Creatinine 0.90 (0.7-1.3) mg/dL Glucose 99 (65-110) mg/dL Calcium 9.2 (8.4-10.2) mg/dL AST 35 (17-59) U/L ALT 26 (6-50) U/L Alkaline Phosphatase 40 (38-126) U/L Total Protein 8.0 (6.3-8.2) g/dL Albumin 4.5 (3.5-5.1) g/dL Intake and Output 01/13/24 01/13/24 01/13/24 00:59 07:59 15:59 Output Total Balance Output: Urine Patient Weight 01/13/24 22:59 Weight 86.2 kg
--- NOTE | 2024-01-13 08:28 | ECG_ITS ---
Test Date: 2024-01-13 08:38:33 Measurements Intervals [place] Rate: 58 P: 54 AR: 186 QRS: 62 QRSD: 111 T: 58 QT: 399 QTc: 394 Interpretive Statements SINUS BRADYCARDIA INCOMPLETE RIGHT BUNDLE BRANCH BLOCK BORDERLINE ECG Compared to ECG 01/13/2024 05:26:58 HEART RATE HAS DECREASED Electronically Signed On 01-13-2024 09:25:07 [employer]OUND W[employer] CONTRACTOR by Mat Araujo D.O.
[2024-01-13] MEDS: ASPIRIN 81 MG CHEWABLE TABLET PO (08:31)
--- NOTE | 2024-01-13 09:54 | PM.IMPN ---
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 mid chest pain as detailed in HPI. Labs, imaging, EKG, and all reports were personally reviewed. Initial troponin was 1.730 and is trending upwards. Troponin 4.7 today received aspirin 324 mg and is currently on heparin drip. cardiac catheterization was performed, without complication. Cardiac catheterization showed patent coronary artery Repeated EKG a.m. showed sinus rhythm, bradycardia, 58, no specific ST or T-wave changes CT of chest was also done, does not show PE or other acute cardiopulmonary disease fasting lipids. Follow-up drug screening Gentle normal saline 100 mL/hour to protect kidneys from contrast injury Follow-up BMP tomorrow Chest x-ray showed mild reticular opacity in the left low lung zone Possible pulmonary edema Follow echocardiogram, and BNP Subjective Date/time seen: 01/13/24 09:54 Interval history: I saw examined patient in ICU. Patient still has chest pain 1-2, denies dyspnea. Patient underwent cardiac catheterization, that shows patent coronary artery. Exam Narrative: General: Well-developed, nontoxic-appearing male sitting up in bed in no acute distress. Weight: 86.2 kg. BMI: 24.4. HEENT: Normocephalic, atraumatic. PERRL, EOMI. Sclera anicteric. Oral mucosa moist. Oropharynx clear. Neck: Supple. No carotid bruits or JVD. Respiratory: Lungs are clear to auscultation bilaterally. Cardiovascular: Regular rate and rhythm with S1-S2. Chest: No tenderness to palpation over the chest wall. Gastrointestinal: Abdomen is soft, nontender, and nondistended with positive bowel sounds. Skin: Warm and dry. No rash or lesions on limited exam. Extremities: No cyanosis, clubbing, or edema. Radial and pedal pulses intact. No palpable knots or cords. Negative Elio sign bilaterally. Neurological: Alert. Cranial nerves 2-12 are grossly intact. No gross focal deficits to casual conversation. Psychiatric: Pleasant and cooperative with normal mood and affect. Judgment and insight intact. Objective Data Vital Signs Vital Signs: Vital Signs - 24 hr 01/13/24 02:24 01/13/24 02:28 01/13/24 02:31 Temperature 97.6 F Pulse Rate 86 69 Respiratory Rate 14 Blood Pressure 132/95 H Pulse Oximetry 100 100 Oxygen Delivery Room Air Room Air 01/13/24 03:37 01/13/24 03:45 01/13/24 04:00 Temperature Pulse Rate 73 61 57 L Respiratory Rate 15 17 Blood Pressure Pulse Oximetry 97 98 93 Oxygen Delivery 01/13/24 04:01 01/13/24 04:15 01/13/24 04:30 Temperature Pulse Rate 65 62 70 Respiratory Rate 10 L 12 12 Blood Pressure 120/84 Pulse Oximetry 94 94 93 Oxygen Delivery 01/13/24 04:45 01/13/24 05:00 01/13/24 05:15 Temperature Pulse Rate 60 60 63 Respiratory Rate 12 12 11 L Blood Pressure Pulse Oximetry 95 94 94 Oxygen Delivery 01/13/24 05:31 01/13/24 05:33 01/13/24 05:45 Temperature Pulse Rate 83 74 Respiratory Rate 10 L 14 Blood Pressure 121/74 Pulse Oximetry 96 96 97 Oxygen Delivery 01/13/24 05:46 01/13/24 06:00 01/13/24 06:15 Temperature Pulse Rate 80 76 70 Respiratory Rate 17 12 12 Blood Pressure 111/81 Pulse Oximetry 96 96 97 Oxygen Delivery 01/13/24 06:30 01/13/24 06:31 01/13/24 06:45 Temperature Pulse Rate 71 74 68 Respiratory Rate 10 L 13 11 L Blood Pressure 114/72 Pulse Oximetry 97 96 96 Oxygen Delivery 01/13/24 07:00 01/13/24 07:15 01/13/24 07:16 Temperature Pulse Rate 73 69 71 Respiratory Rate 11 L 13 13 Blood Pressure 122/73 Pulse Oximetry 97 97 98 Oxygen Delivery 01/13/24 07:30 01/13/24 07:45 01/13/24 08:00 Temperature Pulse Rate 78 76 66 Respiratory Rate 12 12 14 Blood Pressure Pulse Oximetry 96 97 96 Oxygen Delivery 01/13/24 08:01 01/13/24 08:15 Temperature Pulse Rate 64 70 Respiratory Rate 14 12 Blood Pressure 123/89 Pulse Oximetry 96 98 Oxygen Delivery Intake/Output Intake/Output: Intake & Output 01/10/24 01/11/24 01/12/24 01/13/24 23:59 23:59 23:59 22:59 Output Total 200 Balance -200 Meds/Results Medications: Active Medications Generic Name Dose Route Start Last Admin Trade Name Freq PRN Reason Stop Dose Admin Acetaminophen 650 mg 01/13/24 05:21 Acetaminophen 325 Mg Tablet PO Q6H PRN Mild Pain (1-3) or Fever Aspirin 81 mg 01/13/24 08:00 01/13/24 08:31 Aspirin 81 Mg Chewable Tablet PO 81 mg DAILY@0800 [facility] Administration Heparin Sodium (Porcine) 4,000 units 01/13/24 03:26 Heparin Sodium 5,000 Units/Ml Vial IV PUSH PRN PRN aPTT less than 55 seconds Heparin Sodium (Porcine) 3,500 units 01/13/24 03:26 Heparin Sodium 5,000 Units/Ml Vial IV PUSH PRN PRN aPTT 55 - 70 seconds Heparin Sodium/Dextrose 25,000 units in 250 mls @ 10 mls/hr 01/13/24 03:30 01/13/24 03:58 Heparin Sodium/D5w 100 Units/Ml IV CONT 1,000 units/hr .Q24H ROSALIA 10 mls/hr Administration Protocol 1,000 UNITS/HR Morphine Sulfate 4 mg 01/13/24 05:21 Morphine Sulfate (*Crx) 2 Mg/Ml Inj IV PUSH Q4H PRN Pain Rated 7-10 Perflutren Lipid Microsphere 0 ml 01/13/24 05:21 Perflutren Lipid Microspheres 1.5 Ml Vial Diluted To 10 Ml Total Volume IV PUSH 01/16/24 05:22 ONCE PRN adequate visualization Protocol Radiology Results: ITS Impressions Chest X-Ray 01/13/24 07:45 IMPRESSION: 1. Mild reticular opacities in the left lower lung zone which could represent bronchitis/pneumonia, atelectasis or mild pulmonary edema. Labs Labs: Laboratory Results - last 24 hr 01/13/24 01/13/24 01/13/24 02:29 05:25 08:32 WBC 7.9 RBC 4.82 Hgb 15.3 Hct 42.7 MCV 88.6 MCH 31.7 MCHC 35.8 RDW 12.5 Plt Count 231 MPV 10.5 H Immature Gran % (Auto) 0.4 Neut % (Auto) 40.5 L Lymph % (Auto) 43.1 [place] % (Auto) 10.8 H Eos % (Auto) 4.2 Baso % (Auto) 1.0 Lymph # (Auto) 3.40 H [place] # (Auto) 0.9 H Eos # (Auto) 0.3 Baso # (Auto) 0.1 Abs Immat Gran (auto) 0.03 Absolute Neuts (auto) 3.2 Absolute Nucleated RBC 0.000 Nucleated RBC % 0.0 PT 13.2 INR 1.0 APTT 26.6 Sodium 140 Potassium 3.5 Chloride 100 Carbon Dioxide 30 Anion Gap 10 BUN 19 Creatinine 0.90 Estim Creat Clear Calc 111 Estimated GFR > 60 Glucose 99 Calcium 9.2 Total Bilirubin 0.4 AST 35 ALT 26 Alkaline Phosphatase 40 Troponin I 1.730 H* 3.970 H* D 4.780 H* D Total Protein 8.0 Albumin 4.5 Lipase 118
[2024-01-13 10:14] LABS: Cholesterol 212 mg/dL (0-200); HDL Direct 57 mg/dL; Triglycerides 62 mg/dL (<150)
[2024-01-13 10:24] LABS: LDL Cholesterol Direct 115 mg/dL
[2024-01-13 10:25] LABS: Prothrombin Time 13.8 Seconds (11.1-14.7)
[2024-01-13 10:26] LABS: Partial Thromboplastin Time 55.4 Seconds (22.3-36.8)
[2024-01-13] MEDS: HEPARIN SODIUM 5,000 UNITS/ML VIAL 3500 UNITS IV PUSH (10:46)
[2024-01-13 12:00] LABS: Activated Clotting Time 165 SEC (74-137)
--- NOTE | 2024-01-13 12:02 | WPDMODSED ---
Moderate Sedation Note-Pt Data Patient Data Diagnosis: His chest pain elevated troponin Present Complaint: chest pain Procedure to be performed/Plan: coronary angiogram Allergies Allergy/AdvReac Type Severity Reaction Status Date / Time No Known Allergies Allergy Verified 01/13/24 02:28 Home Medications Medication Instructions Recorded Confirmed Type cyclobenzaprine 10 mg tablet 10 mg PO TID PRN muscle spasm #14 01/02/24 Rx tabs ibuprofen 600 mg tablet 600 mg PO Q6H PRN pain #14 tabs 01/02/24 Rx lidocaine 5 % topical patch 1 patch topical DAILY #15 ea 01/02/24 Rx Current Medications: Active Medications Acetaminophen (Acetaminophen 325 Mg Tablet) 650 mg PO Q6H PRN PRN Reason: Mild Pain (1-3) or Fever Aspirin (Aspirin 81 Mg Chewable Tablet) 81 mg PO DAILY@0800 [facility] Last Admin: 01/13/24 08:31 Dose: 81 mg Heparin Sodium (Porcine) (Heparin Sodium 5,000 Units/Ml Vial) 4,000 units IV PUSH PRN PRN PRN Reason: aPTT less than 55 seconds Heparin Sodium (Porcine) (Heparin Sodium 5,000 Units/Ml Vial) 3,500 units IV PUSH PRN PRN PRN Reason: aPTT 55 - 70 seconds Last Admin: 01/13/24 10:46 Dose: 3,500 units Heparin Sodium/Dextrose (Heparin Sodium/D5w 100 Units/Ml) 25,000 units in 250 mls @ 12 mls/hr IV CONT .[id number] ROSALIA; Protocol Last Titration: 01/13/24 10:46 Dose: 1,200 units/hr, 12 mls/hr Morphine Sulfate (Morphine Sulfate (*Crx) 2 Mg/Ml Inj) 4 mg IV PUSH Q4H PRN PRN Reason: Pain Rated 7-10 Perflutren Lipid Microsphere (Perflutren Lipid Microspheres 1.5 Ml Vial Diluted To 10 Ml Total Volume) 0 ml IV PUSH ONCE PRN; Protocol PRN Reason: adequate visualization Stop: 01/16/24 05:22 Sedation/Anesthesia: No previous sedation/anesthesia problems (including family history). [facility] Past Medical History Medical History Healthy adult male Surgical History Surgical History History of orthopedic surgery Right tib-fib and Achilles injury from trauma. Family History Family History Mother Cerebrovascular accident Hypertension Sibling Hypertension Social History Social History Social History: Surrogate medical decision maker: Cheryl Guzman, mother. Code status: Full code. Smoking status: Never smoker Substance use type: does not use Additional living arrangements comments: Lives in [place]. Additional occupation/education comments: Works from home in the [employer] industry. Mod Sed Physical Exam Physical Exam Pre Procedural Exam: Normal: Appearance, Eyes, Ears, Nose, Neck, Throat, Airway, Lungs, Heart Size, Heart Rate, Heart Rhythm, Neuro Exam, Abdomen, Liver, Kidneys, Spleen, Breasts, Genitalia, Extremities and Skin Hours since solid foods: 8 Hours since liquid intake: 8 Mallampati Classification: class 1 Internal Medicine - PN: Obj Da Vital Signs Vital Signs: Vital Signs - 24 hr 01/13/24 02:24 01/13/24 02:28 01/13/24 02:31 Temperature 36.4 C Pulse Rate 86 69 Respiratory Rate 14 Blood Pressure 132/95 H Pulse Oximetry 100 100 Oxygen Delivery Room Air Room Air 01/13/24 03:37 01/13/24 03:45 01/13/24 04:00 Temperature Pulse Rate 73 61 57 L Respiratory Rate 15 17 Blood Pressure Pulse Oximetry 97 98 93 Oxygen Delivery 01/13/24 04:01 01/13/24 04:15 01/13/24 04:30 Temperature Pulse Rate 65 62 70 Respiratory Rate 10 L 12 12 Blood Pressure 120/84 Pulse Oximetry 94 94 93 Oxygen Delivery 01/13/24 04:45 01/13/24 05:00 01/13/24 05:15 Temperature Pulse Rate 60 60 63 Respiratory Rate 12 12 11 L Blood Pressure Pulse Oximetry 95 94 94 Oxygen Delivery 01/13/24 05:31 01/13/24 05:33 01/13/24 05:45 Temperature Pulse Rate 83 74 Respiratory Rate 10 L 14 Blood Pressure 121/74 Pulse Oximetry 96 96 97 Oxygen Delivery 01/13/24 05:46 01/13/24 06:00 01/13/24 06:15 Temperature Pulse Rate 80 76 70 Respiratory Rate 17 12 12 Blood Pressure 111/81 Pulse Oximetry 96 96 97 Oxygen Delivery 01/13/24 06:30 01/13/24 06:31 01/13/24 06:45 Temperature Pulse Rate 71 74 68 Respiratory Rate 10 L 13 11 L Blood Pressure 114/72 Pulse Oximetry 97 96 96 Oxygen Delivery 01/13/24 07:00 01/13/24 07:15 01/13/24 07:16 Temperature Pulse Rate 73 69 71 Respiratory Rate 11 L 13 13 Blood Pressure 122/73 Pulse Oximetry 97 97 98 Oxygen Delivery 01/13/24 07:30 01/13/24 07:45 01/13/24 08:00 Temperature Pulse Rate 78 76 66 Respiratory Rate 12 12 14 Blood Pressure Pulse Oximetry 96 97 96 Oxygen Delivery 01/13/24 08:01 01/13/24 08:15 01/13/24 08:30 Temperature Pulse Rate 64 70 62 Respiratory Rate 14 12 12 Blood Pressure 123/89 Pulse Oximetry 96 98 98 Oxygen Delivery 01/13/24 08:45 01/13/24 08:46 01/13/24 09:00 Temperature Pulse Rate 58 L 58 L 59 L Respiratory Rate 14 12 12 Blood Pressure 130/88 Pulse Oximetry 97 98 97 Oxygen Delivery 01/13/24 09:15 01/13/24 09:30 01/13/24 09:31 Temperature Pulse Rate 61 57 L 59 L Respiratory Rate 12 14 14 Blood Pressure 139/85 Pulse Oximetry 98 97 97 Oxygen Delivery 01/13/24 09:46 01/13/24 10:00 01/13/24 11:08 Temperature Pulse Rate 83 78 Respiratory Rate 14 18 Blood Pressure 134/80 Pulse Oximetry 98 96 99 Oxygen Delivery Intake/Output Intake/Output: Intake & Output 01/10/24 01/11/24 01/12/24 01/13/24 23:59 23:59 23:59 22:59 Intake Total 68 Output Total 200 Balance -132 Meds/Results Medications: Active Medications Generic Name Dose Route Start Last Admin Trade Name Freq PRN Reason Stop Dose Admin Acetaminophen 650 mg 01/13/24 05:21 Acetaminophen 325 Mg Tablet PO Q6H PRN Mild Pain (1-3) or Fever Aspirin 81 mg 01/13/24 08:00 01/13/24 08:31 Aspirin 81 Mg Chewable Tablet PO 81 mg DAILY@0800 ROSALIA Administration Heparin Sodium (Porcine) 4,000 units 01/13/24 03:26 Heparin Sodium 5,000 Units/Ml Vial IV PUSH PRN PRN aPTT less than 55 seconds Heparin Sodium (Porcine) 3,500 units 01/13/24 03:26 01/13/24 10:46 Heparin Sodium 5,000 Units/Ml Vial IV PUSH 3,500 units PRN PRN Administration aPTT 55 - 70 seconds Heparin Sodium/Dextrose 25,000 units in 250 mls @ 12 mls/hr 01/13/24 03:30 01/13/24 10:46 Heparin Sodium/D5w 100 Units/Ml IV CONT 1,200 units/hr .[id number] ROSALIA 12 mls/hr Titration Protocol 1,200 UNITS/HR Morphine Sulfate 4 mg 01/13/24 05:21 Morphine Sulfate (*Crx) 2 Mg/Ml Inj IV PUSH Q4H PRN Pain Rated 7-10 Perflutren Lipid Microsphere 0 ml 01/13/24 05:21 Perflutren Lipid Microspheres 1.5 Ml Vial Diluted To 10 Ml Total Volume IV PUSH 01/16/24 05:22 ONCE PRN adequate visualization Protocol Radiology Results: ITS Impressions Chest X-Ray 01/13/24 07:45 IMPRESSION: 1. Mild reticular opacities in the left lower lung zone which could represent bronchitis/pneumonia, atelectasis or mild pulmonary edema. Labs 01/13/24 02:29 01/13/24 02:29 Labs: Laboratory Results - last 24 hr 01/13/24 01/13/24 01/13/24 02:29 05:25 08:32 WBC 7.9 RBC 4.82 Hgb 15.3 Hct 42.7 MCV 88.6 MCH 31.7 MCHC 35.8 RDW 12.5 Plt Count 231 MPV 10.5 H Immature Gran % (Auto) 0.4 Neut % (Auto) 40.5 L Lymph % (Auto) 43.1 [place] % (Auto) 10.8 H Eos % (Auto) 4.2 Baso % (Auto) 1.0 Lymph # (Auto) 3.40 H [place] # (Auto) 0.9 H Eos # (Auto) 0.3 Baso # (Auto) 0.1 Abs Immat Gran (auto) 0.03 Absolute Neuts (auto) 3.2 Absolute Nucleated RBC 0.000 Nucleated RBC % 0.0 PT 13.2 INR 1.0 APTT 26.6 Activ Coag Time Kaolin Sodium 140 Potassium 3.5 Chloride 100 Carbon Dioxide 30 Anion Gap 10 BUN 19 Creatinine 0.90 Estim Creat Clear Calc 111 Estimated GFR > 60 Glucose 99 Calcium 9.2 Total Bilirubin 0.4 AST 35 ALT 26 Alkaline Phosphatase 40 Troponin I 1.730 H* 3.970 H* D 4.780 H* D Total Protein 8.0 Albumin 4.5 Triglycerides Cholesterol LDL Cholesterol Direct HDL Direct Lipase 118 01/13/24 01/13/24 09:58 12:55 WBC RBC Hgb Hct MCV MCH MCHC RDW Plt Count MPV Immature Gran % (Auto) Neut % (Auto) Lymph % (Auto) [place] % (Auto) Eos % (Auto) Baso % (Auto) Lymph # (Auto) [place] # (Auto) Eos # (Auto) Baso # (Auto) Abs Immat Gran (auto) Absolute Neuts (auto) Absolute Nucleated RBC Nucleated RBC % PT 13.8 INR 1.0 APTT 55.4 H Activ Coag Time Kaolin 165 H Sodium Potassium Chloride Carbon Dioxide Anion Gap BUN Creatinine Estim Creat Clear Calc Estimated GFR Glucose Calcium Total Bilirubin AST ALT Alkaline Phosphatase Troponin I Total Protein Albumin Triglycerides 62 Cholesterol 212 H LDL Cholesterol Direct 115 HDL Direct 57 Lipase ASA Classification/Sedation ASA Classification/Sedation ASA Class: I Emergent: No Risks: Risks, benefits and alternatives explained and patient/family accepted plan for sedation. Patient re-evaluated immediately prior to sedation.
--- NOTE | 2024-01-13 12:03 | P.PCNCC_ITS ---
Cardiac Cath Procedure Note Date of procedure:: 01/13/24 Performing physician:: Jake Valadez MD date of service 01/13/2024 Indication:: chest pain and elevated troponins Brief clinical history:: This is 38-year-old patient with no significant past medical history who presents here to the hospital via private vehicle for evaluation for chest pain. No new medical problems and does not any prescribed medications at home. Stated that for the last several months he has some issues with the upper back, bilateral shoulders discomfort and stopped working out and started seeing chiropractor. About a couple weeks ago you took our fracture did he start to have left lower rib cage pain that is worse when he takes a deep breath. He came to the emergency room and he was told to take some NSAIDs. His upper back issues were related to torso movement and moving shoulders. Then on Sunday night he started to feel anxious Sunday he did well and went to dinner and then after that he came back home I said fee anxious again sent to do a chest pressure. Chest pressure started to increase in severity and was central in location and then at 2:00 a.m. it became intense and decided to come to the emergency room. Denies palpitations, shortness of breath, dizziness, syncope. Does not smoke or drink and denies family history of CAD. Procedure Procedure performed:: 1-Moderate sedation that started at 11:26 a.m.and ended at 11:57 a.m. total duration 31 minutes using 2mg of Versed and 50 mcg fentanyl. The registered nurse was wilma restrepo 2-Selective left and right coronary angiogram. 3-Left heart catheterization with measurement of LVEDP and measurement of gradient across aortic valve. 4- LV angiogram 4-Right common femoral arterial angiogram. 5-Deployment of 6 Cymraes Angio-Seal. Sedation/Medication given:: Moderate sedation. Access site:: Right common femoral artery. Estimated blood loss:: 10cc Procedure note:: After informed consent patient was brought in to cardiovascular lab director with the was draped and prepped in usual manner. Moderate sedation was given and the right groin was infiltrated using 1% lidocaine. Five Cymraes sheath was obtained using micropuncture needle and the modified Seldinger technique. Selective left coronary angiogram was done using JL4 catheter with the tip of the catheter placed in the left main coronary artery. Selective right coronary angiogram was done using JR4 catheter with the tip of the catheter placed to the right coronary artery. After that 5 Cymraes pigtail catheter was advanced across the aortic valve into the left ventricle with measurement of LVEDP and measurement of gradient across aortic valve. LV angiogram was done Right common femoral arterial angiogram was done. Findings:: 1- left coronary artery is a large artery that divides into large LAD, large circumflex artery, large ramus. Left main is free of disease 2- left anterior descending artery is a large artery that runs and wraps around the apex. free of disease. Proximal LAD large diagonal branch free of disease. 3- Ramus intermedius is large and free of disease. 3- leftcircumflex artery is a large artery and free of disease 4- right coronary artery is large and dominant and free of disease. 5- LVEDP was 10 mm Hg and no gradient across aortic valve. 6- LV angiogram shows normal ejection fraction with no wall motion abnormalities. 6- opening arterial pressure was 119/74 and closing pressure was 105/89 7- right femoral artery angiogram shows no significant disease in the right common femoral artery. Assessment and Plan Assessment and plan (1) Non-ST elevation myocardial infarction (NSTEMI): Code(s): I21.4 - Non-ST elevation (NSTEMI) myocardial infarction Status: Acute Assessment and Plan: patient presents here to the hospital with chest pain, elevated troponins. Cardiac catheterization does not show CAD. The etiology for troponin elevation remains unclear. No ischemic changes on EKG. - Recommend to rule out pulmonary embolism and aortic dissection. - Obtain echocardiogram to assess cardiac structure and function.
--- NOTE | 2024-01-13 12:27 | ADMGEN ---
This patient, Curtis Schultz, was admitted to ICU 8 at 1218. Patient/family oriented to hospital policies and general routines including ID bracelet, bed and alarms, visiting hours, pain management, procedures, bathroom and other care routines, personal items, smoking policy, room service/diet, and visiting hours. Information on how to activate the Rapid Response Team has been discussed. Patient/Family are encouraged to report perceived risks to care and to ask questions if they do not understand what they are told or what they should do.
[2024-01-13] MEDS: SODIUM CHLORIDE 0.9% IV 500 ML IV CONT (13:15)
[2024-01-13] MEDS: SODIUM CHLORIDE 0.9% IV 1,000 ML 100 ML IV CONT (14:25)
[2024-01-13 15:10] LABS: NT Pro B Type Natriuretic Pept < 20 pg/mL (19.9-100)
[2024-01-14] VITALS (9 sets, daily range): BP systolic 112–124; BP diastolic 74–94; PULSE 54–79; RESP 11–18; TEMP 36.1–37.1; O2SAT 94–100
[2024-01-14 04:49] LABS: Basophils Absolute Auto 0.1 K/mm3 (0.0-0.1); Basophils Percent Auto 0.7 % (0.2-1.2); Eosinophils Absolute Auto 0.3 K/mm3 (0-0.3); Eosinophils Percent Auto 3.8 % (0-4.4); Hematocrit 39.9 % (42.0-52.0); Hemoglobin 14.1 g/dL (14.0-18.0); Immature Granulocyte Absolute 0.03 K/mm3 (0.00-0.031); Immature Granulocyte Percent A 0.4 % (0-0.5); Lymphocytes Absolute Auto 1.58 K/mm3 (0.9-3.2); Lymphocytes Percent Auto 22.4 % (18.3-44.2); Mean Corpuscular HGB Conc 35.3 g/dl (32-36); Mean Corpuscular Hemoglobin 31.2 pg (26-34); Mean Corpuscular Volume 88.3 fl (80-100); Mean Platelet Volume 10.5 fl (7.4-10.4); Monocytes Absolute Auto 0.8 K/mm3 (0.1-0.6); Monocytes Percent Auto 11.5 % (2.6-8.5); Neutrophils Absolute Auto 4.3 K/mm3 (1.3-6.7); Neutrophils Percent Auto 61.2 % (45.5-73.1); Platelet Count Result 198 k/mm3 (150-375); Red Blood Count 4.52 M/mm3 (4.6-6.20); Red Cell Distribution Width 12.4 % (11.5-14.5); White Blood Count 7.1 K/mm3 (4.5-10.0)
--- NOTE | 2024-01-14 05:22 | ECHO_ITS ---
Patient Info Name: Curtis Schultz Age: 38 years : 1985 Gender: Male Ht: 74 in Wt: 190 lbs BSA: 2.12 m2 HR: 63 bpm BP: 112 / 74 mmHg Technical Quality: Good Exam Date: 01/14/2024 11:42 AM Exam Location: Echo Lab Patient Status: Inpatient Admit Date: 01/13/2024 Staff Ordering Physician: Angelica Castillo PA-C Cable Installation Manager: Amena Almanza RDCS Attending Provider: Inocencio Henderson MD Referring Physician: Anna TAVARES; Exam Type: CA echo dop color flow w con Study Info Indications I21.4 - Non-ST elevation (NSTEMI) myocardial infarction Complete two-dimensional, color flow and Doppler transthoracic echocardiogram is performed with contrast to opacify the left ventricle and to improve the deliniation of the left ventricle endocardial borders. Contrast/Agitated Saline Contrast/Ag. Saline: Definity Amount: 2.00 ml Existing IV Access: Yes Summary 1. The left ventricle is normal in size and systolic function. The left ventricular ejection fraction is visually estimated to be 60-65%. 2. The right ventricle is normal in size and systolic function. Left Ventricle The left ventricle is normal in size and systolic function. The left ventricular ejection fraction is visually estimated to be 60-65%. Right Ventricle The right ventricle is normal in size and systolic function. Left Atria The left atrium is normal in size. Right Atria The right atrium is normal in size. Aortic Valve The aortic valve is trileaflet and opens well. There is no aortic regurgitation. Pulmonic Valve The pulmonic valve is not well visualized. There is no color Doppler evidence pulmonic valve regurgitation. Mitral Valve The mitral valve leaflets appear thickened. There is trace mitral regurgitation. Tricuspid Valve The tricuspid valve is normal. There is trace tricuspid regurgitation. Pericardium/Pleural Pericardium is normal in appearance with no evidence for significant pericardial effusion. Inferior Vena Cava Normal inferior vena cava with >50% collapse upon inspiration consistent with normal right atrial pressure, 3 mmHg. Left Ventricular Outflow Tract Name Value Normal LVOT 2D LVOT Diameter 2.06 cm LVOT Doppler LVOT Peak Gradient 5 mmHg LVOT Mean Gradient 2 mmHg LVOT VTI 21.12 cm LVOT VTI/AV VTI Ratio 0.91 LVOT Stroke Volume 70.69 ml LVOT CO 4.08 l/min LVOT CI 1.92 L/min/m2 Pulmonic Valve Name Value Normal PV Doppler PV Peak Gradient 3 mmHg Mitral Valve Name Value Normal MV Doppler MV Decel [place] 365.88 cm/s2 MV PHT 0 s MV Area (PHT) 4.25 cm2 4.00-5.00 MV Diastolic Function MV E Peak Velocity 65.27 cm/s MV A Peak Velocity 45.13 cm/s MV E/A 1.45 MV Decel Time 0 s Tricuspid Valve Name Value Normal TV Regurgitation Doppler TR Peak Velocity 178.47 cm/s TR Peak Gradient 12 mmHg Estimated PAP/RSVP RA Pressure 3 mmHg <=5 PA Systolic Pressure 16 mmHg <36 RV Systolic Pressure 16 mmHg <36 Aorta Name Value Normal Ascending Aorta Ao Root Diameter (MM) 2.57 cm Ao Root Diam Index (MM) 1.21 cm/m2 Aortic Valve Name Value Normal AV Doppler AV Peak Velocity 108.21 cm/s AV Peak Gradient 5 mmHg AV Mean Gradient 2 mmHg AV VTI 23.29 cm AV Area (Cont Eq VTI) 3.04 cm2 >=3.00 AV Area (Cont Eq Kiko) 3.58 cm2 AV Regurgitation 2D LVOT Area 3.35 cm2 Ventricles Name Value Normal LV Dimensions 2D/MM IVS Diastolic Thickness (2D) 0.63 cm 0.60-1.00 IVS Diastole Thickness (MM) 0.61 cm 0.60-1.00 LVID Diastole (2D) 5.12 cm 4.20-5.80 LVID Diastole (MM) 5.62 cm 4.20-5.80 LVIW Diastolic Thickness (2D) 0.82 cm 0.60-1.00 LVIW Diastolic Thickness (MM) 0.86 cm 0.60-1.00 LVID Systole (2D) 3.37 cm 2.50-4.00 LVID Systole (MM) 3.37 cm 2.50-4.00 LVOT Diameter 2.06 cm LV Mass (2D Cubed) 124.39 g 88.00-224.00 LV Mass Index (2D Cubed) 0.01 g/cm2 0.00-0.01 Relative Wall Thickness (2D) 0.32 LV Mass (MM Cubed) 149.55 g 88.00-224.00 LV Mass Index (MM Cubed) 0.01 g/cm2 0.00-0.01 Relative Wall Thickness (MM) 0.31 LV Fractional Shortening/Ejection Fraction 2D/MM LV Fractional Shortening (2D) 34 % 25-43 LV Fractional Shortening (MM) 40 % 25-43 LV EF (MM Teicholz) 70 % 52-72 LV EF (2D Teicholz) 63 % 52-72 LV Diastolic Volume (4C MOD) 142.12 ml LV EF (4C MOD) 75 % LV Diastolic Volume (2C MOD) 123.53 ml LV EF (2C MOD) 66 % LV Diastolic Volume (BP MOD) 132.37 ml 62.00-150.00 LV Diastolic Volume Index (BP MOD) 0.06 l/m2 0.03-0.07 LV Systolic Volume (BP MOD) 40.97 ml 21.00-61.00 LV Systolic Volume Index (BP MOD) 0.02 l/m2 0.01-0.03 LV EF (BP MOD) 69 % 52-72 LV Diastolic Length (4C) 9.50 cm LV Systolic Length (4C) 7.09 cm LV Stroke Volume (4C MOD) 106.64 ml Atria Name Value Normal LA Dimensions LA Dimension (MM) 3.26 cm 3.00-4.10 LA Volume (4C A-L) 29.04 ml LA Volume (BP A-L) 37.21 ml RA Dimensions RA Area (4C) 11.72 cm2 <=18.00 Report Signatures
[2024-01-14 05:24] LABS: Anion Gap 8 mmol/L (4-12); Blood Urea Nitrogen 11 mg/dL (9-20); Calcium 8.7 mg/dL (8.4-10.2); Carbon Dioxide 26 mmol/L (22-30); Chloride 104 mmol/L (98-107); Estimated CRCL calculation 124 ml/min; Estimated Glomerular Filt Rate > 60; Glucose 100 mg/dL (65-110); Sodium 138 mmol/L (137-145)
[2024-01-14] MEDS: ACETAMINOPHEN 325 MG TABLET 650 MG PO (07:48)
[2024-01-14] MEDS: ASPIRIN 81 MG CHEWABLE TABLET PO (07:50)
--- NOTE | 2024-01-14 10:14 | P.PNCA_ITS ---
Progress Note: A&P Assessment and Plan (1) Non-ST elevation WA (NSTEMI): Code(s): I21.4 - Non-ST elevation (NSTEMI) myocardial infarction Status: Acute Plan 38-year-old man with no significant past medical history presented to the hospital with chest pain and troponin elevations concerning for non ST elevation WA for which he was brought to the cardiac catheterization lab where no coronary obstructive disease were found Non ST-elevation WA -no epicardial obstructive disease was found -Imdur 30 mg p.o. daily -aspirin 81 mg and Plavix 75 mg -rosuvastatin 20 mg every evening -heart rate typically runs on the lower end prohibiting use of beta-blockers -would obtain a transthoracic echocardiogram today Subjective Date/time seen: 01/14/24 10:14 Interval history: 38-year-old man with no significant past medical history presented to the hospital with chest pain and troponin elevations concerning for non ST elevation WA for which he was brought to the cardiac catheterization lab where no coronary obstructive disease were found. 01/13 -has some occasional chest pain throughout the evening Review of Systems Cardiovascular: Cardiovascular: Reports as per HPI Exam Const: General: comfortable HENMT: Mouth: Yes moist mucous membranes Eyes: EOM: EOMs intact bilaterally Neck: Neck: no JVD Resp: Auscultation: clear to auscultation bilaterally Cardio: Rate: regular rate Rhythm: regular rhythm GI: GI Palp: Yes Soft to palpation Neuro: Speech: normal speech Extrem: General: no edema Psych: Affect: normal affect Objective Data Vital Signs Vital Signs: Vital Signs - 24 hr 01/13/24 11:08 01/13/24 14:00 01/13/24 12:18 Temperature 36.6 C Pulse Rate 78 55 L 69 Respiratory Rate 18 12 Blood Pressure 134/80 119/84 Pulse Oximetry 99 96 Oxygen Delivery 01/13/24 12:23 01/13/24 14:22 01/13/24 12:28 Temperature Pulse Rate 70 69 72 Respiratory Rate 12 15 14 Blood Pressure 119/84 122/91 H 120/89 Pulse Oximetry 96 99 98 Oxygen Delivery 01/13/24 12:40 01/13/24 13:00 01/13/24 13:30 Temperature Pulse Rate 69 67 67 Respiratory Rate 13 12 13 Blood Pressure 134/85 105/70 105/70 Pulse Oximetry 98 98 98 Oxygen Delivery 01/13/24 14:50 01/13/24 14:55 01/13/24 15:10 Temperature Pulse Rate 65 69 70 Respiratory Rate 13 12 12 Blood Pressure 120/87 122/89 127/89 Pulse Oximetry 99 97 99 Oxygen Delivery 01/13/24 15:25 01/13/24 15:50 01/13/24 15:00 Temperature Pulse Rate 71 81 68 Respiratory Rate 13 23 H 15 Blood Pressure 104/93 H 106/83 124/99 H Pulse Oximetry 98 99 99 Oxygen Delivery 01/13/24 15:05 01/13/24 15:15 01/13/24 15:20 Temperature Pulse Rate 72 69 71 Respiratory Rate 14 15 12 Blood Pressure 124/92 H 128/87 127/91 H Pulse Oximetry 99 98 99 Oxygen Delivery 01/13/24 16:00 01/13/24 16:00 01/13/24 16:50 Temperature 37.1 C Pulse Rate 69 74 73 Respiratory Rate 15 13 Blood Pressure 121/80 131/95 H Pulse Oximetry 99 100 Oxygen Delivery 01/13/24 17:50 01/13/24 18:00 01/13/24 12:23 Temperature Pulse Rate 67 62 75 Respiratory Rate 13 Blood Pressure 126/90 Pulse Oximetry 100 Oxygen Delivery 01/13/24 20:00 01/13/24 20:00 01/13/24 22:00 Temperature 36.7 C Pulse Rate 55 L 55 L 59 L Respiratory Rate 11 L Blood Pressure 107/93 H Pulse Oximetry 97 Oxygen Delivery 01/14/24 00:00 01/14/24 00:00 01/14/24 02:00 Temperature 36.6 C Pulse Rate 54 L 54 L 58 L Respiratory Rate 12 Blood Pressure 123/94 H Pulse Oximetry 96 Oxygen Delivery 01/14/24 04:00 01/14/24 04:00 01/14/24 06:00 Temperature 36.1 C L Pulse Rate 56 L 56 L 57 L Respiratory Rate 12 Blood Pressure 112/74 Pulse Oximetry 94 Oxygen Delivery 01/14/24 08:00 01/14/24 08:00 01/14/24 08:00 Temperature 37.1 C Pulse Rate 78 78 78 Respiratory Rate 11 L 11 L Blood Pressure 118/80 Pulse Oximetry 97 97 Oxygen Delivery Room Air Intake/Output Intake/Output: Intake & Output 01/12/24 01/13/24 01/13/24 01/14/24 00:59 00:59 23:59 23:59 Intake Total 320 Output Total 700 Balance -380 Meds/Results Medications: Active Medications Generic Name Dose Route Start Last Admin Trade Name Cathryn PRN Reason Stop Dose Admin Acetaminophen 650 mg 01/13/24 05:21 01/14/24 07:48 Acetaminophen 325 Mg Tablet PO 650 mg Q6H PRN Administration Mild Pain (1-3) or Fever Aspirin 81 mg 01/13/24 08:00 01/14/24 07:50 Aspirin 81 Mg Chewable Tablet PO 81 mg DAILY@0800 [facility] Administration Morphine Sulfate 4 mg 01/13/24 05:21 Morphine Sulfate (*Crx) 2 Mg/Ml Inj IV PUSH Q4H PRN Pain Rated 7-10 Perflutren Lipid Microsphere 0 ml 01/13/24 05:21 Perflutren Lipid Microspheres 1.5 Ml Vial Diluted To 10 Ml Total Volume IV PUSH 01/16/24 05:22 ONCE PRN adequate visualization Protocol Radiology Results: ITS Impressions Chest X-Ray 01/13/24 07:45 IMPRESSION: 1. Mild reticular opacities in the left lower lung zone which could represent bronchitis/pneumonia, atelectasis or mild pulmonary edema. Abdomen/Pelvis CTA 01/13/24 13:53 IMPRESSION: 1. No pulmonary embolism or other acute cardiopulmonary disease. 2. Small amount of likely active contrast extravasation at the right groin with sheath within the right common femoral vein and small hematoma along the right common and superficial femoral artery and small amount of contrast the soft tissues at both proximal and distal to the level of the inguinal ligament. Chest CTA 01/13/24 13:53 IMPRESSION: 1. No pulmonary embolism or other acute cardiopulmonary disease. 2. Small amount of likely active contrast extravasation at the right groin with sheath within the right common femoral vein and small hematoma along the right common and superficial femoral artery and small amount of contrast the soft tissues at both proximal and distal to the level of the inguinal ligament. Labs Labs: Laboratory Results - last 24 hr 01/13/24 01/13/24 01/14/24 09:58 12:55 04:44 WBC 7.1 RBC 4.52 L Hgb 14.1 Hct 39.9 L MCV 88.3 MCH 31.2 MCHC 35.3 RDW 12.4 Plt Count 198 MPV 10.5 H Immature Gran % (Auto) 0.4 Neut % (Auto) 61.2 Lymph % (Auto) 22.4 [place] % (Auto) 11.5 H Eos % (Auto) 3.8 Baso % (Auto) 0.7 Lymph # (Auto) 1.58 [place] # (Auto) 0.8 H Eos # (Auto) 0.3 Baso # (Auto) 0.1 Abs Immat Gran (auto) 0.03 Absolute Neuts (auto) 4.3 Absolute Nucleated RBC 0.000 Nucleated RBC % 0.0 PT 13.8 INR 1.0 APTT 55.4 H Activ Coag Time Kaolin 165 H Sodium 138 Potassium 4.0 Chloride 104 Carbon Dioxide 26 Anion Gap 8 BUN 11 D Creatinine 0.80 Estim Creat Clear Calc 124 Estimated GFR > 60 Glucose 100 Calcium 8.7 NT-Pro-B Natriuret Pep < 20 Triglycerides 62 Cholesterol 212 H LDL Cholesterol Direct 115 HDL Direct 57
[2024-01-14] MEDS: ROSUVASTATIN 20 MG TABLET PO (11:08)
[2024-01-14] MEDS: CLOPIDOGREL BISULFATE 75 MG TABLET PO (11:08)
[2024-01-14] MEDS: PERFLUTREN LIPID MICROSPHERES 1.5 ML VIAL DILUTED TO 10 ML TOTAL VOLUME IV PUSH (12:05)
--- NOTE | 2024-01-14 14:45 | PM.IMPN ---
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: Code(s): M89.512 - Osteolysis, left shoulder Status: Acute Assessment and Plan: OT, PRN pain control (3) Lateral epicondylitis of left elbow: Code(s): M77.12 - Lateral epicondylitis, left elbow Status: Acute Assessment and Plan: OT and PRN pain control (4) Left shoulder pain: Code(s): M25.512 - Pain in left shoulder Status: Acute Assessment and Plan: PRN pain control and OT Plan DVT prophylaxis on Sq lovenox Subjective Date/time seen: 01/14/24 14:45 Interval history: Patient comfortable at bedside Review of Systems Review of Systems: 12 systems were reviewed and are negative except for as per HPI. Exam Narrative: General: Well-developed, nontoxic-appearing male sitting up in bed in no acute distress. Weight: 86.2 kg. BMI: 24.4. HEENT: Normocephalic, atraumatic. PERRL, EOMI. Sclera anicteric. Oral mucosa moist. Oropharynx clear. Neck: Supple. No carotid bruits or JVD. Respiratory: Lungs are clear to auscultation bilaterally. Cardiovascular: Regular rate and rhythm with S1-S2. Chest: No tenderness to palpation over the chest wall. Gastrointestinal: Abdomen is soft, nontender, and nondistended with positive bowel sounds. Skin: Warm and dry. No rash or lesions on limited exam. Extremities: No cyanosis, clubbing, or edema. Radial and pedal pulses intact. No palpable knots or cords. Negative Elio sign bilaterally. Neurological: Alert. Cranial nerves 2-12 are grossly intact. No gross focal deficits to casual conversation. Psychiatric: Pleasant and cooperative with normal mood and affect. Judgment and insight intact. Objective Data Vital Signs Vital Signs: Vital Signs - 24 hr 01/13/24 14:50 01/13/24 14:55 01/13/24 15:10 Temperature Pulse Rate 65 69 70 Respiratory Rate 13 12 12 Blood Pressure 120/87 122/89 127/89 Pulse Oximetry 99 97 99 Oxygen Delivery 01/13/24 15:25 01/13/24 15:50 01/13/24 15:00 Temperature Pulse Rate 71 81 68 Respiratory Rate 13 23 H 15 Blood Pressure 104/93 H 106/83 124/99 H Pulse Oximetry 98 99 99 Oxygen Delivery 01/13/24 15:05 01/13/24 15:15 01/13/24 15:20 Temperature Pulse Rate 72 69 71 Respiratory Rate 14 15 12 Blood Pressure 124/92 H 128/87 127/91 H Pulse Oximetry 99 98 99 Oxygen Delivery 01/13/24 16:00 01/13/24 16:00 01/13/24 16:50 Temperature 98.8 F Pulse Rate 69 74 73 Respiratory Rate 15 13 Blood Pressure 121/80 131/95 H Pulse Oximetry 99 100 Oxygen Delivery 01/13/24 17:50 01/13/24 18:00 01/13/24 20:00 Temperature Pulse Rate 67 62 55 L Respiratory Rate 13 Blood Pressure 126/90 Pulse Oximetry 100 Oxygen Delivery 01/13/24 20:00 01/13/24 22:00 01/14/24 00:00 Temperature 98.0 F Pulse Rate 55 L 59 L 54 L Respiratory Rate 11 L Blood Pressure 107/93 H Pulse Oximetry 97 Oxygen Delivery 01/14/24 00:00 01/14/24 02:00 01/14/24 04:00 Temperature 97.8 F Pulse Rate 54 L 58 L 56 L Respiratory Rate 12 Blood Pressure 123/94 H Pulse Oximetry 96 Oxygen Delivery 01/14/24 04:00 01/14/24 06:00 01/14/24 08:00 Temperature 97.0 F L Pulse Rate 56 L 57 L 78 Respiratory Rate 12 Blood Pressure 112/74 Pulse Oximetry 94 Oxygen Delivery 01/14/24 08:00 01/14/24 08:00 01/14/24 10:00 Temperature 98.7 F Pulse Rate 78 78 76 Respiratory Rate 11 L 11 L Blood Pressure 118/80 Pulse Oximetry 97 97 Oxygen Delivery Room Air 01/14/24 12:00 01/14/24 12:00 01/14/24 12:00 Temperature Pulse Rate 60 70 79 Respiratory Rate 11 L 12 Blood Pressure Pulse Oximetry 97 100 Oxygen Delivery Room Air 01/14/24 14:12 01/14/24 14:00 Temperature 98.6 F Pulse Rate 73 79 Respiratory Rate 18 Blood Pressure 124/79 Pulse Oximetry 97 Oxygen Delivery Intake/Output Intake/Output: Intake & Output 01/12/24 01/13/24 01/13/24 01/14/24 00:59 00:59 23:59 23:59 Intake Total 560 Output Total 700 Balance -140 Meds/Results Medications: Active Medications Generic Name Dose Route Start Last Admin Trade Name Freq PRN Reason Stop Dose Admin Acetaminophen 650 mg 01/13/24 05:21 01/14/24 07:48 Acetaminophen 325 Mg Tablet PO 650 mg Q6H PRN Administration Mild Pain (1-3) or Fever Aspirin 81 mg 01/13/24 08:00 01/14/24 07:50 Aspirin 81 Mg Chewable Tablet PO 81 mg DAILY@0800 [facility] Administration Clopidogrel Bisulfate 75 mg 01/14/24 10:25 01/14/24 11:08 Clopidogrel Bisulfate 75 Mg Tablet PO 75 mg QAM [facility] Administration Isosorbide Mononitrate 15 mg 01/15/24 09:00 Isosorbide Mononitrate 15 Mg Tab.Er.24h PO [facility] Morphine Sulfate 4 mg 01/13/24 05:21 Morphine Sulfate (*Crx) 2 Mg/Ml Inj IV PUSH Q4H PRN Pain Rated 7-10 Perflutren Lipid Microsphere 0 ml 01/13/24 05:21 Perflutren Lipid Microspheres 1.5 Ml Vial Diluted To 10 Ml Total Volume IV PUSH 01/16/24 05:22 ONCE PRN adequate visualization Protocol Rosuvastatin Calcium 20 mg 01/14/24 10:25 01/14/24 11:08 Rosuvastatin 20 Mg Tablet PO 20 mg QAM [facility] Administration Radiology Results: ITS Impressions Chest X-Ray 01/13/24 07:45 IMPRESSION: 1. Mild reticular opacities in the left lower lung zone which could represent bronchitis/pneumonia, atelectasis or mild pulmonary edema. Abdomen/Pelvis CTA 01/13/24 13:53 IMPRESSION: 1. No pulmonary embolism or other acute cardiopulmonary disease. 2. Small amount of likely active contrast extravasation at the right groin with sheath within the right common femoral vein and small hematoma along the right common and superficial femoral artery and small amount of contrast the soft tissues at both proximal and distal to the level of the inguinal ligament. Chest CTA 01/13/24 13:53 IMPRESSION: 1. No pulmonary embolism or other acute cardiopulmonary disease. 2. Small amount of likely active contrast extravasation at the right groin with sheath within the right common femoral vein and small hematoma along the right common and superficial femoral artery and small amount of contrast the soft tissues at both proximal and distal to the level of the inguinal ligament. Labs Labs: Laboratory Results - last 24 hr 01/13/24 01/14/24 09:58 04:44 WBC 7.1 RBC 4.52 L Hgb 14.1 Hct 39.9 L MCV 88.3 MCH 31.2 MCHC 35.3 RDW 12.4 Plt Count 198 MPV 10.5 H Immature Gran % (Auto) 0.4 Neut % (Auto) 61.2 Lymph % (Auto) 22.4 [place] % (Auto) 11.5 H Eos % (Auto) 3.8 Baso % (Auto) 0.7 Lymph # (Auto) 1.58 [place] # (Auto) 0.8 H Eos # (Auto) 0.3 Baso # (Auto) 0.1 Abs Immat Gran (auto) 0.03 Absolute Neuts (auto) 4.3 Absolute Nucleated RBC 0.000 Nucleated RBC % 0.0 Sodium 138 Potassium 4.0 Chloride 104 Carbon Dioxide 26 Anion Gap 8 BUN 11 D Creatinine 0.80 Estim Creat Clear Calc 124 Estimated GFR > 60 Glucose 100 Calcium 8.7 NT-Pro-B Natriuret Pep < 20 Quality VTE Prophylaxis VTE prophylaxis: pharmacologic ordered (currently on a heparin drip)
--- NOTE | 2024-01-14 14:57 | IVDEFINITY ---
Prior to administration of IV Definity the patient was educated on the risks and benefits of the imaging enhancing agent including potential adverse side effects. The patient verbalized understanding. Allergies were verified. No exclusion criteria were identified and at least one of the following inclusion criteria were met: 1) physician request, 2) patient technically difficult to image (per the [place] [employer] guidelines of two or more segments not discernable within the apical view), or 3) questionable left ventricular function. ?
--- NOTE | 2024-01-14 15:14 | PCCPR ---
visited bedside- provided information on Cardiac Rehab upon discharge
--- NOTE | 2024-01-14 15:58 | P.DS_ITS ---
DS: Admitting Diagnosis Discharge Date 01/14/2024 Admitting Diagnosis Chest pain DS: Discharge Diagnosis Discharge Diagnosis (1) Non-ST elevation myocardial infarction (NSTEMI): Code(s): I21.4 - Non-ST elevation (NSTEMI) myocardial infarction Status: Acute DS: Summary Hospital Course Hospital Course: This is a 38-year-old male without significant medical history who presented to the emergency department via private vehicle for evaluation of chest pain. The patient provides the following history. On Sunday he ?just felt weird all day.? When asked for further clarification he reports that he was feeling anxious for no reason. Yesterday he was feeling back to normal so couple of hours after he returned home from eating dinner last evening he once again started to feel similar symptoms he was experiencing the day before. He retired to bed at 23:00 and not long thereafter he developed aching pain in the mid chest which he describes as pressure or heaviness. It seemed to radiate into the arms, more so into the forearms and wrist. Associated symptoms include nausea and 1 episode of nonbilious and non bloody emesis. He took Pepto-Bismol which did not help. The pain intensified to 8-9/10 any came in for evaluation. He has never had similar symptoms. Up until the last couple of months he was working out at the gym frequently but stopped going when he developed the musculoskeletal issues mentioned above. He has not had any exertional chest pain and denies pleuritic pain, palpitations, shortness of breath, lower extremity edema, and calf pain. He also denies syncope and near-syncope. 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 He endorses having quite a bit of stress recently as he is saving up for a down payment on home. At this time he has minimal if any discomfort. No personal or family history of coronary artery disease. Of note, a couple of months ago he began experiencing aching in his mid upper back and at times into the neck and shoulder and he saw 2 different chiropractors without much benefit. His symptoms actually improved after he stopped going. In the ED: Vital signs were stable on arrival. CMP and CBC were pretty unremarkable. Initial troponin was 1.730. EKG showed sinus bradycardia. He was given aspirin 324 mg and was started on heparin drip and is being admitted to the IMU in this setting for close monitoring and Cardiology consultation. Patient underwent cardiac cath with no coronary artery disease found, cardiology recommended Imdur, ASpirin, Plavix adn crestor. no Beta patito was recommended due to low heart rate. ECHO Showed EF 60-65%. Cardiology evaluated and recommended discharge on the above medications. F/u wtih PCP in 3-5 days, f/u with Cardiology as instructed Time Spent with Patient Time attestation: Total time spent providing and/or coordinating discharge services: DS: Data Data Completed and Pending Labs on day of discharge: Labs from last 24 hours 01/14/24 04:44 WBC 7.1 RBC 4.52 L Hgb 14.1 Hct 39.9 L MCV 88.3 MCH 31.2 MCHC 35.3 RDW 12.4 Plt Count 198 MPV 10.5 H Immature Gran % (Auto) 0.4 Neut % (Auto) 61.2 Lymph % (Auto) 22.4 [place] % (Auto) 11.5 H Eos % (Auto) 3.8 Baso % (Auto) 0.7 Lymph # (Auto) 1.58 [place] # (Auto) 0.8 H Eos # (Auto) 0.3 Baso # (Auto) 0.1 Abs Immat Gran (auto) 0.03 Absolute Neuts (auto) 4.3 Absolute Nucleated RBC 0.000 Nucleated RBC % 0.0 Sodium 138 Potassium 4.0 Chloride 104 Carbon Dioxide 26 Anion Gap 8 BUN 11 D Creatinine 0.80 Estim Creat Clear Calc 124 Estimated GFR > 60 Glucose 100 Calcium 8.7 Discharge Plan Discharge Attending physician on discharge: Kiara Ramirez Consulting providers: Adriane Garcia Discharging Clinician: Kiara Ramirez Anticipated Discharge Date/Time: 01/14/24 15:55 Patient Disposition: Home, Self-Care Activity: as tolerated Diet: as tolerated Patient Instructions: Antibiotic Form Stand Alone Forms: General Discharge Information Follow-up/Referrals: Soy Coronel MD [Primary Care Provider] - (F/u with PCP in 3-5 days ) Adriane Garcia DO [Physician] - (F/u with cardiology as instructed ) Discharge Medications: New isosorbide mononitrate 30 mg tablet extended release 24 hr 30 mg PO DAILY Qty: 30 1RF aspirin [Children's Aspirin] 81 mg Tablet,Chewable 81 mg PO DAILY@0800 30 Days Qty: 30 0RF clopidogrel 75 mg Tablet 75 mg PO QAM 30 Days Qty: 30 1RF rosuvastatin 20 mg Tablet 20 mg PO QAM 30 Days Qty: 30 1RF No Action No Home Medications Date of admission: 01/13/24 03:27 Primary Care Provider: Soy Coronel Admitting Provider: Inocencio Henderson Attending physician on admission: Inocencio Henderson Condition: Stable
--- NOTE | 2024-01-14 17:03 | PC.NURSE ---
Reviewed discharge paperwork with patient and family members. Verbalizes understanding at this time. child monitor removed, and IV site removed intact. Denies questions or concerns at this time.
== END 2024-01-14 16:57 | disposition home or self-care (01) ==
LOC: ANHED 03:03 → ANHIMU 11:13 → ANHICU 01-14 15:58 → ANHIMU 01-16 07:29
PROVIDERS: Hospitalist; Internal Medicine Cardiovascular Disease; Physician Assistant; Admitting Provider Internal Medicine; Emergency Provider Emergency Medicine; PCP Emergency Medicine; Visit Provider Internal Medicine
PROC: 4A023N7 Measurement of Cardiac Sampling and Pressure, Left Heart, Percutaneous Approach (ICD-10-PCS; CPT 93452; principal; 2024-01-13 10:40)
DX: I21.4 Non-ST elevation (NSTEMI) myocardial infarction (principal); M89.512 Osteolysis, left shoulder; M77.12 Lateral epicondylitis, left elbow; R79.89 Other specified abnormal findings of blood chemistry; Z79.899 Other long term (current) drug therapy
CPT/HCPCS: 36415; 71045; 71275; 74174; 80048; 80053; 80061; 83690; 83880; 84484; 85025; 85610; 85730; 93005; 93458; 96365; 96366; 96375; 99285; A9270; C1760; C1887; C1894; C8929; G0269; J0461; J1644; J2003; J2250; J2270; J2305; J2405; J2470; J3010; J7030; J7040; Q9957; Q9967

== ENCOUNTER 2024-01-17 14:49 | Emergency (ER) | payer MEDICARE, SELFPAY ==
--- NOTE | ~2024-01-17 | CT_ITS ---
EXAMINATION: CT brain wo con DATE: 01/17/2024 15:45 INDICATION: Headache. TECHNIQUE: Computed tomography (CT) of the head was performed without intravenous contrast. The mA wa s adjusted according to patient size. Iterative reconstruction technique was employed. The dose-lengt h product was 605.33 mGy-cm. COMPARISON: None FINDINGS: There is no intracranial hemorrhage, acute infarction, or abnormal intracranial mass lesion . The ventricles are normal in size. The orbits are normal. There is mild mucosal thickening in the p aranasal sinuses. The mastoid air cells are normal. IMPRESSION: 1. Normal brain. Reviewed, dictated and finalized at location A. O ANNOUNCER IMPRESSION: 1. Normal brain.
[2024-01-17 15:05] VITALS: BP 109/67; PULSE 109; RESP 18; TEMP 36.6; O2SAT 98
--- NOTE | 2024-01-17 15:28 | ED_ITS ---
HPI - Headache General Chief Complaint: Headache <AJ Ozuna Last Filed: 01/17/24 15:48> Stated Complaint: migraine <AJ Ozuna Last Filed: 01/17/24 15:48> Time Seen by Provider: 01/17/24 15:28 <AJ Ozuna Last Filed: 01/17/24 15:48> Focused HPI: Patient is a 38 y/o male who presents to the ED with c/o MEYER. Patient reports he was admitted to the hospital here last weekend for NSTEMI, found to have elevated troponins. Had a cardiac catheterization which did not show any significant stenosis. Negative CTA chest/abd. Was started on ASA, plavix, isosorbide, and rosuvastatin at that time. patient reports since leaving the hospital, he has had a headache at least 90% of the time. Currently complains frontal headache. States sometimes the pain is improved at night, but is persistent. Has tried taking Excedrin without significant change in the headaches. Has not taken anything for pain today. Denies history of headaches or migraines. Reports lightheadedness, photophobia/phonophobia, intermittent nausea. Denies vomiting. Denies vision changes. Denies further chest pain or shortness of breath. GENERAL: Well-appearing, well-nourished, and in no acute distress. HEAD: Normocephalic, atraumatic. CHEST: Clear to auscultation. ?No respiratory distress. HEART: Regular rate and rhythm.? NEURO: ?Alert and oriented x3. No focal deficits. Patient screened in triage and initial orders placed.? ?Additional care and disposition to be based upon?diagnostic testing and treatment. <AJ Ozuna Last Filed: 01/17/24 15:48> Source: patient <AJ Ozuna Filed: 01/17/24 15:48> Mode of arrival: ambulatory <AJ Ozuna Last Filed: 01/17/24 15:48> Limitations: no limitations <AJ Ozuna Last Filed: 01/17/24 15:48> History of Present Illness HPI Narrative: per HPI <Ada Garcia MD - Last Filed: 01/17/24 17:57> Related Data Allergies/Adverse Reactions: Allergies Allergy/AdvReac Type Severity Reaction Status Date / Time No Known Allergies Allergy Verified 01/13/24 02:28 <Kellen Sweet PA-C - Last Filed: 01/17/24 15:48> Review of Systems Review of Systems: All systems reviewed & are unremarkable except as noted in HPI and below <Ada Garcia MD - Last Filed: 01/17/24 17:57> PMFSH Past Medical History Medical History: Medical History Healthy adult male <Kellen Sweet PA-C - Last Filed: 01/17/24 15:48> Surgical History Surgical History: Surgical History History of orthopedic surgery Right tib-fib and Achilles injury from trauma. <Kellen Sweet PA-C - Last Filed: 01/17/24 15:48> Family History Family History: Family History Mother Cerebrovascular accident Hypertension Sibling Hypertension <Kellen Sweet PA-C - Last Filed: 01/17/24 15:48> Social History Social History: Social History Social History: Surrogate medical decision maker: Cheryl Guzman, mother. Code status: Full code. Smoking status: Never smoker Alcohol intake: former Substance use: former Substance use type: marijuana Do You Feel Safe in your Home?: Yes Lack of Transportation: No Lack of Food: Never True Current Housing: I Have Housing Concerned About Future Housing: No Difficulty Paying Gas/Electric Bills: No Difficulty Paying for Meds: No Currently Unemployed: No Education: Don't Know Difficulty w/ Childcare or Family Care: No Additional living arrangements comments: Lives in [place]. Additional occupation/education comments: Works from home in the [employer] industry. Spiritual care concerns: Yes <Kellen Sweet PA-C - Last Filed: 01/17/24 15:48> Exam Narrative: EXAMINATION OF ORGAN SYSTEMS/BODY AREAS: Constitutional: Vital signs per nursing GENERAL:[No acute distress, non-toxic appearing.] HEAD: Normal with no signs of head trauma. EYES: EOMI, conjunctiva normal ENT: Hearing grossly intact LUNGS: Nonlabored breathing. HEART: [Regular rate and rhythm] ABD: [Soft], [nontender to palpation] EXT: Normal range of motion SKIN: [No rashes or lesions.] NEURO: [Alert and oriented x 3. No gross focal sensory or strength deficits.] Clear speech, no facial droop, normal gait PSYCH: Normal affect <Ada Garcia MD - Last Filed: 01/17/24 17:57> Course Vital Signs Vital signs: Vital Signs Temperature 97.9 F 01/17/24 15:05 Pulse Rate 109 H 01/17/24 15:05 Respiratory Rate 18 01/17/24 15:05 Blood Pressure 109/67 01/17/24 15:05 Pulse Oximetry 98 01/17/24 15:05 Oxygen Delivery Room Air 01/17/24 15:05 Temperature 97.9 F 01/17/24 15:05 Pulse Rate 109 H 01/17/24 15:05 Respiratory Rate 18 01/17/24 15:05 Blood Pressure 109/67 01/17/24 15:05 Pulse Oximetry 98 01/17/24 15:05 Oxygen Delivery Room Air 01/17/24 15:05 <Kellen Sweet PA-C - Last Filed: 01/17/24 15:48> Vital Signs Temperature 97.9 F 01/17/24 15:05 Pulse Rate 109 H 01/17/24 15:05 Respiratory Rate 18 01/17/24 15:05 Blood Pressure 109/67 01/17/24 15:05 Pulse Oximetry 98 01/17/24 15:05 Oxygen Delivery Room Air 01/17/24 15:05 Temperature 97.9 F 01/17/24 15:05 Pulse Rate 109 H 01/17/24 15:05 Respiratory Rate 18 01/17/24 15:05 Blood Pressure 109/67 01/17/24 15:05 Pulse Oximetry 98 01/17/24 15:05 Oxygen Delivery Room Air 01/17/24 15:05 <Ada Garcia MD - Last Filed: 01/17/24 17:57> MDM - Headache MDM Narrative Medical decision making narrative: MSE by VELMA in triage. <Kellen Sweet PA-C - Last Filed: 01/17/24 15:48> MSE by VELMA in triage. // Patient presents here with headache, 8/10, has been intermittent since he was discharged, thinks that might be the medications he is on; I did review his meds and suspect it may be the Imdur, he did have a CT head here that was thankfully normal. Patient is hemodynamically stable. No focal neurological or cranial nerve deficits on exam. No meningeal signs. The headache was gradual in onset, it is not exertional and does not appear consistent with subarachnoid hemorrhage or intracranial bleeding. No trauma.? Patient is given Reglan and on re-evaluation, he feels significantly better with headache resolving.] No neurological deficits. Patient is comfortable going home for outpatient follow-up with primary care physician and provided with strict return precautions, especially for worsening headaches, neck pain/stiffness, fever or weakness, numbness/tingling or persistent vomiting. 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 You can always return to the emergency room if your headache returns or worsens or anything else concerning. <Kellen Sweet PA-C - Last Filed: 01/17/24 15:48> Prescriptions: No Action aspirin [Children's Aspirin] 81 mg Tablet,Chewable 81 mg PO DAILY@0800 30 Days Qty: 30 0RF clopidogrel 75 mg Tablet 75 mg PO QAM 30 Days Qty: 30 1RF rosuvastatin 20 mg Tablet 20 mg PO QAM 30 Days Qty: 30 1RF isosorbide mononitrate 30 mg tablet extended release 24 hr 30 mg PO DAILY Qty: 30 1RF <Kellen Sweet PA-C - Last Filed: 01/17/24 15:48> Follow-up/Referrals: Soy Coronel MD [Primary Care Provider] - <Kellen Sweet PA-C - Last Filed: 01/17/24 15:48>
--- NOTE | 2024-01-17 16:54 | ED_ITS ---
HPI - Headache General Chief Complaint: Headache Stated Complaint: migraine Time Seen by Provider: 01/17/24 15:28 Mode of arrival: ambulatory Limitations: no limitations Related Data Allergies Allergy/AdvReac Type Severity Reaction Status Date / Time No Known Allergies Allergy Verified 01/13/24 02:28 [facility] Past Medical History Medical History Healthy adult male Surgical History Surgical History History of orthopedic surgery Right tib-fib and Achilles injury from trauma. Family History Family History Mother Cerebrovascular accident Hypertension Sibling Hypertension Social History Social History Social History: Surrogate medical decision maker: Cheryl Guzman, mother. Code status: Full code. Smoking status: Never smoker Alcohol intake: former Substance use: former Substance use type: marijuana Do You Feel Safe in your Home?: Yes Lack of Transportation: No Lack of Food: Never True Current Housing: I Have Housing Concerned About Future Housing: No Difficulty Paying Gas/Electric Bills: No Difficulty Paying for Meds: No Currently Unemployed: No Education: Don't Know Difficulty w/ Childcare or Family Care: No Additional living arrangements comments: Lives in [place]. Additional occupation/education comments: Works from home in the [employer] industry. Spiritual care concerns: Yes Course Vital Signs Vital signs: Vital Signs Temperature 97.9 F 01/17/24 15:05 Pulse Rate 109 H 01/17/24 15:05 Respiratory Rate 18 01/17/24 15:05 Blood Pressure 109/67 01/17/24 15:05 Pulse Oximetry 98 01/17/24 15:05 Oxygen Delivery Room Air 01/17/24 15:05 Temperature 97.9 F 01/17/24 15:05 Pulse Rate 109 H 01/17/24 15:05 Respiratory Rate 18 01/17/24 15:05 Blood Pressure 109/67 01/17/24 15:05 Pulse Oximetry 98 01/17/24 15:05 Oxygen Delivery Room Air 01/17/24 15:05 Discharge Plan Discharge Prescriptions: No Action aspirin [Children's Aspirin] 81 mg Tablet,Chewable 81 mg PO DAILY@0800 30 Days Qty: 30 0RF clopidogrel 75 mg Tablet 75 mg PO QAM 30 Days Qty: 30 1RF rosuvastatin 20 mg Tablet 20 mg PO QAM 30 Days Qty: 30 1RF isosorbide mononitrate 30 mg tablet extended release 24 hr 30 mg PO DAILY Qty: 30 1RF Follow-up/Referrals: Soy Coronel MD [Primary Care Provider] -
[2024-01-17] MEDS: METOCLOPRAMIDE HCL INJ 10 MG/2 ML VIAL IM (17:17)
[2024-01-17] MEDS: ACETAMINOPHEN 500 MG TABLET 1000 MG PO (17:17)
== END 2024-01-17 17:56 | disposition home or self-care (01) ==
PROVIDERS: Emergency Provider Emergency Medicine; PCP Emergency Medicine
DX: R51.9 Headache, unspecified (principal); I25.2 Old myocardial infarction; Z79.82 Long term (current) use of aspirin; Z79.02 Long term (current) use of antithrombotics/antiplatelets; Z79.899 Other long term (current) drug therapy
CPT/HCPCS: 70450; 96372; 99284; A9270; J2765

== ENCOUNTER 2024-04-24 13:12 | Outpatient (CLI) | payer MEDICARE, SELFPAY ==
--- NOTE | ~2024-04-24 | MR_ITS ---
EXAMINATION: MR elbow LT wo con DATE: 04/24/2024 13:44 INDICATION: Left elbow pain TECHNIQUE: Magnetic resonance imaging (MRI) of the left elbow was performed without intravenous contr ast. Sequences included coronal, axial, and sagittal PD-weighted FS FSE and coronal, axial, and sagit sumit PD-weighted FSE. COMPARISON: None FINDINGS: Osseous/other: Normal alignment. Normal marrow signal with no marrow edema, fracture, osteochondral lesion or abnor mal marrow replacing process. Mild osteoarthritis with tiny marginal osteophytes and mild scattered n onuniform joint space narrowing with partial-thickness cartilage loss with smooth chondral surface. Tendons: Triceps, biceps brachii and brachialis tendons are normal. Common flexor tendon wad is normal. The c ommon extensor tendon wad is normal. Ligaments: The medial and lateral collateral ligament complexes are normal. Cubital tunnel: Cubital tunnel is unremarkable with normal signal and caliber of the ulnar nerve. Fluid: Physiologic amount of fluid the elbow joint. IMPRESSION: 1. Mild osteoarthritis at the left elbow. Reviewed, dictated and finalized at location A. RANCE ADJUSTOR
== END 2024-04-24 13:13 | disposition home or self-care (01) ==
LOC: MICIMG 13:13
PROVIDERS: PCP Nurse Practitioner Family; Visit Provider Nurse Practitioner Family
DX: M19.022 Primary osteoarthritis, left elbow (principal)
CPT/HCPCS: 73221